=== PATIENT | female | born 1945 | race Caucasian/White ===

== ENCOUNTER 2020-04-23 09:22 | Outpatient (REF) | payer MEDICARE, OTHER, SELFPAY ==
--- NOTE | 2020-04-23 | MM_ITS ---
EXAMINATION: BONE DENSITOMETRY CLINICAL INDICATION: Osteopenia. COMPARISON: Previous BD dated 01/11/2018 and baseline BD dated 01/10/2007. TECHNIQUE: Using a OneShift DXA System (software version: 13.1) manufactured by [employer], dual-energy x-ray absorptiometry was performed of the lumbar spine and left hip. The images are of good technical quality. Summary results are attached. FINDINGS: AP SPINE L1-L4: Current: BMD 1.034 g/cm2, Z-score 0.8, T-score -1.2, osteopenia, 6.7% decrease from previous, 4.9% decrease from baseline (<5% change is not significant). Prior: BMD 1.108 g/cm2. Baseline: BMD 1.087 g/cm2. LEFT FEMUR, NECK: Current: BMD 0.695 g/cm2, Z-score -0.4, T-score -2.5, osteoporosis. Prior: BMD 0.719 g/cm2. Baseline: BMD 0.772 g/cm2. LEFT FEMUR, TOTAL: Current: BMD 0.723 g/cm2, Z-score -0.4, T-score -2.3, osteopenia, 0.7% decrease from previous, 7.3% decrease from baseline (<5% change is not significant). Prior: BMD 0.728 g/cm2. Baseline: BMD 0.780 g/cm2. IDENTIFIED RISK FACTORS: Menopause, history of fracture (adult). HISTORY OF FRACTURE: Wrist. No insufficiency fracture reported. MEDICATIONS: Calcium supplements or multivitamin. IMPRESSION: 1. DIAGNOSIS: Osteoporosis based on the lowest T-score value of -2.5 in the femoral neck applying World Health Organization criteria. 2. 10-YEAR FRACTURE RISK PREDICTION, FRAX: Major osteoporotic fracture (clinical spine, forearm, hip or shoulder) 22.5%. Hip fracture 6.8%. 3. Treatment Recommendations: NOF guidelines recommend consideration for treatment in postmenopausal women and men age 50 and older presenting with the following: -A hip or vertebral (clinical or morphometric) fracture. -T-score less than or equal to -2.5 at the femoral neck or spine after appropriate evaluation to exclude secondary causes. -Low bone mass at the hip or spine and a 10-year fracture probability by FRAX of greater than or equal to 3% for hip fracture or greater than or equal to 20% for major osteoporotic fracture based on the [place] adapted WHO algorithm. 4. Other Recommendations: All treatment decisions require clinical judgment and consideration of individual patient factors, including patient preferences, comorbidities, previous drug use, risk factors not captured in the FRAX model (e.g. frailty, falls, vitamin D deficiency, increased bone turnover, interval significant decline in bone density) and possible under or overestimation of fracture risk by FRAX. Additional medical evaluation for secondary cause of low bone mineral density may be appropriate. FUTURE SCAN RECOMMENDATION: People with diagnosed cases of osteoporosis or at high risk for fracture should have regular bone mineral density tests. For patients eligible for Medicare, routine testing is allowed once every 2 years. The testing frequency can be increased to one year for patients who have rapidly progressing disease, those who are receiving or discontinuing medical therapy to restore bone mass, or have additional risk factors.
--- NOTE | 2020-04-23 | MM_ITS ---
EXAMINATION: MM SCREENING DIGITAL BREAST TOMOSYNTHESIS, BILATERAL CLINICAL INFORMATION: Screening. Asymptomatic. The lifetime risk of breast cancer based on the Tyrer-Cuzick Model is 4%. COMPARISON: Mammography: 01/11/2018, 12/15/2016 TECHNIQUE: Digital breast tomosynthesis is performed in both the craniocaudal and mediolateral oblique views along with computer-aided detection (CAD). Synthesized 2D images are generated from the tomosynthesis. Additional bilateral MLO views are provided. FINDINGS: There are scattered areas of fibroglandular density (ACR BI-RADS breast composition Category b). There are scattered fibroglandular densities. The remainder the breasts are predominantly fatty. There are no significant masses, abnormal calcifications, or other abnormalities. The axilla and skin contours are unremarkable. IMPRESSION: No mammographic evidence of malignancy. ASSESSMENT: BI-RADS 1: Negative RECOMMENDATION: Routine annual mammography screening. This patient's information was entered into a reminder system with a target due date for their next mammogram.
== END 2020-04-23 09:23 | disposition home or self-care (01) ==
LOC: HO.MAMMO 09:22
PROVIDERS: PCP Internal Medicine; Visit Provider Nurse Practitioner Adult Health
DX: Z12.31 Encounter for screening mammogram for malignant neoplasm of breast (principal); Z13.820 Encounter for screening for osteoporosis; M85.80 Other specified disorders of bone density and structure, unspecified site; Z78.0 Asymptomatic menopausal state
CPT/HCPCS: 77063; 77067; 77080

== ENCOUNTER 2021-11-25 08:16 | Outpatient (REF) | payer MEDICARE, OTHER, SELFPAY ==
[2021-11-25 11:35] LABS: Hematocrit 43.4 % (37.0-47.0); Hemoglobin 14.2 g/dl (12.0-16.0); Mean Corpuscular HGB Conc 32.7 g/dl (31.0-35.0); Mean Corpuscular Hemoglobin 29.8 pg (27.0-33.0); Mean Platelet Volume 11.1 fL (9.4-12.3); Platelet Count 195 X10*3/uL (160-400); Red Blood Count 4.77 X10*6/uL (4.20-5.50); Red Cell Distribution Width 12.9 % (11.0-16.0); White Blood Count 5.5 X10*3/uL (4.8-10.8)
[2021-11-25 12:02] LABS: TSH reflex Free T4 2.37 uIU/mL (0.32-4.0)
[2021-11-25 12:07] LABS: Alanine Aminotransferase 14 U/L (0-31); Albumin Level 4.3 g/dL (3.5-5.0); Alkaline Phosphatase 75 U/L (39-117); Anion Gap 13 (12-20); Aspartate Amino Transferase 21 U/L (5-31); Bilirubin Total 1.3 mg/dL (0.0-1.0); Blood Urea Nitrogen 15 mg/dL (9-16); Calcium 10.2 mg/dL (8.4-10.2); Carbon Dioxide 27 mmol/L (22-29); Chloride 105 mmol/L (96-108); Cholesterol 247 mg/dL; Estimated Glomerular Filt Rate > 60; Glucose Fasting 104 mg/dL (60-99); HDL Cholesterol 40 mg/dL; LDL Cholesterol Calculated 166 mg/dl; Potassium 4.5 mmol/L (3.3-5.1); Sodium 140 mmol/L (135-145); Total Protein 7.5 g/dL (6.5-8.0); Triglycerides 205 mg/dL
== END 2021-11-25 08:17 | disposition home or self-care (01) ==
LOC: HO.HMGCLDS 08:16
PROVIDERS: PCP Internal Medicine; Visit Provider Internal Medicine
DX: Z00.00 Encounter for general adult medical examination without abnormal findings (principal); E78.5 Hyperlipidemia, unspecified
CPT/HCPCS: 36415; 80053; 80061; 84443; 85027

== ENCOUNTER 2021-12-25 13:56 | Outpatient (REF) | payer MEDICARE, OTHER, SELFPAY ==
--- NOTE | ~2021-12-25 | US_ITS ---
EXAMINATION: US EXTRACRANIAL CAROTID DUPLEX, BILATERAL CLINICAL INFORMATION: Carotid bruit. Hyperlipidemia. COMPARISON: None TECHNIQUE: Real-time ultrasound and Doppler techniques (integrating B-mode 2-D vascular images, Doppler spectral analysis and color-flow Doppler imaging) were utilized to interrogate the extracranial carotid arteries, the vertebral arteries and proximal subclavian arteries bilaterally. The degree of stenosis is determined by criteria similar to NASCET. FINDINGS: Right Side: 1. There is no atherosclerotic plaque seen in the bifurcation/proximal ICA region. 2. The common carotid artery PSV proximally is 104 cm/s and distally 74 cm/s. 3. The proximal internal carotid artery velocities are 81 cm/s systolic and 27 cm/s diastolic. 4. The proximal external carotid artery PSV is 86 cm/s. 5. The vertebral artery shows antegrade flow. 6. The subclavian artery waveforms are normal. Left Side: 1. There is minimal atherosclerotic plaque seen in the bifurcation/proximal ICA region. 2. The common carotid artery PSV proximally is 115 cm/s and distally 88 cm/s. 3. The proximal internal carotid artery velocities are 75 cm/s systolic and 26 cm/s diastolic. 4. The proximal external carotid artery PSV is 141 cm/s. 5. The vertebral artery shows antegrade flow. 6. The subclavian artery waveforms are normal. US/US carotid duplex BI IMPRESSION: 1. RIGHT: Normal right internal carotid artery without atherosclerotic plaque or hemodynamically significant stenosis. 2. LEFT: Minimal, non-hemodynamically significant stenosis of the proximal left internal carotid artery corresponding to a 0-49% stenosis by velocity criteria.
== END 2021-12-25 13:57 | disposition home or self-care (01) ==
LOC: HO.US 13:56
PROVIDERS: Visit Provider Internal Medicine
DX: R09.89 Other specified symptoms and signs involving the circulatory and respiratory systems (principal)
CPT/HCPCS: 93880

== ENCOUNTER 2022-03-10 08:53 | Outpatient (REF) | payer MEDICARE, OTHER, SELFPAY ==
[2022-03-10 12:16] LABS: Cholesterol 218 mg/dL; HDL Cholesterol 44 mg/dL; LDL Cholesterol Calculated 147 mg/dl; Triglycerides 137 mg/dL
== END 2022-03-10 08:54 | disposition home or self-care (01) ==
LOC: HO.HMGCLDS 08:53
PROVIDERS: PCP Internal Medicine; Visit Provider Internal Medicine
DX: E78.5 Hyperlipidemia, unspecified (principal)
CPT/HCPCS: 36415; 80061

== ENCOUNTER 2022-04-24 10:18 | Outpatient (REF) | payer MEDICARE, OTHER, SELFPAY ==
--- NOTE | ~2022-04-24 | MM_ITS ---
EXAMINATION: BONE DENSITOMETRY CLINICAL INDICATION: Menopause. COMPARISON: Previous BD dated 04/23/2020 and baseline BD dated 01/10/2007. TECHNIQUE: Using a [employer] DXA System (software version: 13.1) manufactured by [employer], dual-energy x-ray absorptiometry was performed of the lumbar spine and left hip. The images are of good technical quality. Summary results are attached. FINDINGS: AP SPINE L1-L4: Current: BMD 1.064 g/cm2, Z-score 1.2, T-score -1.0, normal, 2.9% increase from previous, 2.1% decrease from baseline (<5% change is not significant). Prior: BMD 1.034 g/cm2. Baseline: BMD 1.087 g/cm2. LEFT FEMUR, NECK: Current: BMD 0.668 g/cm2, Z-score -0.4, T-score -2.7, osteoporosis. Prior: BMD 0.695 g/cm2. Baseline: BMD 0.772 g/cm2. LEFT FEMUR, TOTAL: Current: BMD 0.668 g/cm2, Z-score -0.6, T-score -2.7, osteoporosis, 7.6% decrease from previous, 14.4% decrease from baseline (<5% change is not significant). Prior: BMD 0.723 g/cm2. Baseline: BMD 0.780 g/cm2. IDENTIFIED RISK FACTORS: Menopause, height loss, history of fracture (adult), low body weight. HISTORY OF FRACTURE: Wrist. MEDICATIONS: Multivitamin. MM/XR DEXA axial skeleton IMPRESSION: 1. DIAGNOSIS: Osteoporosis based on the lowest T-score value of -2.7 in the femur neck and total femur applying World Health Organization criteria. 2. 10-YEAR FRACTURE RISK PREDICTION, FRAX: According to the guidelines, FRAX calculation should only be performed on patients in the osteopenia bone density category. Therefore, FRAX was not performed on this patient. 3. Treatment Recommendations: NOF guidelines recommend consideration for treatment in postmenopausal women and men age 50 and older presenting with the following: -A hip or vertebral (clinical or morphometric) fracture. -T-score less than or equal to -2.5 at the femoral neck or spine after appropriate evaluation to exclude secondary causes. -Low bone mass at the hip or spine and a 10-year fracture probability by FRAX of greater than or equal to 3% for hip fracture or greater than or equal to 20% for major osteoporotic fracture based on the [place] adapted WHO algorithm. 4. Other Recommendations: All treatment decisions require clinical judgment and consideration of individual patient factors, including patient preferences, comorbidities, previous drug use, risk factors not captured in the FRAX model (e.g. frailty, falls, vitamin D deficiency, increased bone turnover, interval significant decline in bone density) and possible under or overestimation of fracture risk by FRAX. Additional medical evaluation for secondary cause of low bone mineral density may be appropriate. FUTURE SCAN RECOMMENDATION: People with diagnosed cases of osteoporosis or at high risk for fracture should have regular bone mineral density tests. For patients eligible for Medicare, routine testing is allowed once every 2 years. The testing frequency can be increased to one year for patients who have rapidly progressing disease, those who are receiving or discontinuing medical therapy to restore bone mass, or have additional risk factors.
== END 2022-04-24 10:19 | disposition home or self-care (01) ==
LOC: HO.MAMMO 10:18
PROVIDERS: Visit Provider Nurse Practitioner Adult Health
DX: Z13.820 Encounter for screening for osteoporosis (principal); Z78.0 Asymptomatic menopausal state
CPT/HCPCS: 77080

== ENCOUNTER 2022-10-21 08:05 | Outpatient (REF) | payer MEDICARE, OTHER, SELFPAY ==
--- NOTE | ~2022-10-21 | XR_ITS ---
EXAMINATION: XR CHEST CLINICAL INFORMATION: Abnormal weight loss COMPARISON: Previous chest x-ray May 2013 TECHNIQUE: Frontal view of the chest was obtained. FINDINGS: The cardiac and mediastinal contours are stable. The lungs are clear. The lungs are well inflated there is slight elevation of the right hemidiaphragm similar to previous exam. No pleural effusion or pneumothorax. There are degenerative changes of the spine. XR/XR chest 1V IMPRESSION: Well-inflated lungs. No evidence for acute disease in the chest.
[2022-10-21 11:43] LABS: MANUAL DIFF FLAG NO
[2022-10-21 11:51] LABS: Basophils Absolute Auto 0.1 X10*3/uL (0.0-0.2); Basophils Percent Auto 1.3 % (0-2); Eosinophils Absolute Auto 0.1 X10*3/uL (0.0-0.4); Eosinophils Percent Auto 2.2 % (0-4); Hematocrit 41.7 % (37.0-47.0); Hemoglobin 13.5 g/dl (12.0-16.0); Imm Gran Abs Auto 0.01 X10*3/uL (0.00-0.03); Imm Gran Pct Auto 0.2 % (0.0-0.4); Lymphocytes Percent Auto 36.2 % (20-40); Mean Corpuscular HGB Conc 32.4 g/dl (31.0-35.0); Mean Corpuscular Hemoglobin 29.6 pg (27.0-33.0); Mean Corpuscular Volume 91.4 fL (80.0-98.0); Mean Platelet Volume 11.5 fL (9.4-12.3); Monocytes Absolute Auto 0.5 X10*3/uL (0.1-1.2); Neutrophils Absolute Auto 2.9 x10*3/uL (2.0-8.3); Neutrophils Percent Auto 51.1 % (45-73); Platelet Count 192 X10*3/uL (160-400); Red Blood Count 4.56 X10*6/uL (4.20-5.50); Red Cell Distribution Width 12.9 % (11.0-16.0); White Blood Count 5.6 X10*3/uL (4.8-10.8)
[2022-10-21 12:15] LABS: Alanine Aminotransferase 11 U/L (0-31); Albumin Level 4.2 g/dL (3.5-5.0); Alkaline Phosphatase 71 U/L (39-117); Anion Gap 10 (12-20); Aspartate Amino Transferase 20 U/L (5-31); Bilirubin Total 1.1 mg/dL (0.0-1.0); Blood Urea Nitrogen 14 mg/dL (9-16); C Reactive Protein < 0.10 mg/dL (< or = 0.50); Calcium 9.4 mg/dL (8.4-10.2); Carbon Dioxide 29 mmol/L (22-29); Chloride 104 mmol/L (96-108); Cholesterol 217 mg/dL; Estimated Glomerular Filt Rate > 60; Glucose Fasting 89 mg/dL (60-99); HDL Cholesterol 39 mg/dL; Iron 127 mcg/dL (30-160); LDL Cholesterol Calculated 138 mg/dl; Percent Iron Saturation 44 % (15-50); Potassium 4.2 mmol/L (3.3-5.1); Sodium 139 mmol/L (135-145); Total Iron Binding Capacity 288 mcg/dL (228-428); Total Protein 6.8 g/dL (6.5-8.0); Triglycerides 204 mg/dL; Unsaturated Iron Binding 161 ug/dL
[2022-10-21 12:26] LABS: HBS Num1 115.67 mIU/mL (0-7.99); Hepatitis B Core Antibody Nonreactive (Nonreactive); Hepatitis B Surface Antigen Negative (Negative); ~HepC Num1 0.12 S/CO (0.00-0.79); ~Hepatitis B Surface Antibody REACTIVE (Nonreactive); ~Hepatitis C Antibody Nonreactive (Nonreactive)
[2022-10-21 12:52] LABS: Erythrocyte Sedimentation Rate 13 MM/HR (0-20)
[2022-10-21 12:54] LABS: Folate 15.2 ng/mL (> or = 4.0); TSH reflex Free T4 3.32 uIU/mL (0.32-4.0); Vitamin B12 564 pg/mL (200-900); Vitamin D 25-OH Total 56.2 ng/mL (>30)
== END 2022-10-21 08:06 | disposition home or self-care (01) ==
LOC: HO.HMGCX 08:05
PROVIDERS: PCP Internal Medicine; Visit Provider Internal Medicine
DX: R63.4 Abnormal weight loss (principal); E78.5 Hyperlipidemia, unspecified; G62.9 Polyneuropathy, unspecified; Z11.59 Encounter for screening for other viral diseases; Z72.89 Other problems related to lifestyle
CPT/HCPCS: 36415; 71045; 80053; 80061; 82306; 82607; 82746; 83540; 84443; 85025; 85652; 86140; 86704; 86706; 86803; 87340

== ENCOUNTER 2023-01-07 09:54 | Outpatient (REF) | payer MEDICARE, OTHER, SELFPAY ==
--- NOTE | ~2023-01-07 | MM_ITS ---
EXAMINATION: MM SCREENING DIGITAL BREAST TOMOSYNTHESIS, BILATERAL CLINICAL INFORMATION: Screening. Asymptomatic. The lifetime risk of breast cancer based on the Tyrer-Cuzick Model is 3.6%. COMPARISON: Mammography: This study is compared to prior mammograms dating back to 2018. TECHNIQUE: Digital breast tomosynthesis is performed in both the craniocaudal and mediolateral oblique views along with computer-aided detection (CAD). Synthesized 2D images are generated from the tomosynthesis. FINDINGS: There are scattered areas of fibroglandular density (ACR BI-RADS breast composition Category b). There are no significant masses, abnormal calcifications, or other abnormalities. MM/MM tomosynthesis screening BI IMPRESSION: No mammographic evidence of malignancy. ASSESSMENT: BI-RADS BI-RADS 1 - Negative RECOMMENDATION: Routine annual mammography screening. 1 year F/U This patient's information was entered into a reminder system with a target due date for their next mammogram.
== END 2023-01-07 09:55 | disposition home or self-care (01) ==
LOC: HO.MAMMO 09:54
PROVIDERS: PCP Internal Medicine; Visit Provider Nurse Practitioner Adult Health
DX: Z12.31 Encounter for screening mammogram for malignant neoplasm of breast (principal)
CPT/HCPCS: 77063; 77067

== ENCOUNTER → 2023-01-07 10:00 | Outpatient (BNV) | payer MEDICARE, OTHER, SELFPAY | PROVIDERS: PCP Internal Medicine; Visit Provider Radiology Diagnostic Radiology | DX: Z12.31 Encounter for screening mammogram for malignant neoplasm of breast (principal); Z85.3 Personal history of malignant neoplasm of breast | CPT/HCPCS: 77063; 77067 ==

== ENCOUNTER 2023-10-26 14:02 | Outpatient (AMB) | payer MEDICARE, OTHER, SELFPAY ==
[2023-10-26 14:25] VITALS: BP 136/85; PULSE 48; O2SAT 98; BMI 18.9
--- NOTE | 2023-10-26 14:25 | A.OFFPC_ITS ---
Vital Signs 10/26/23 14:25 Height 5 ft 4 in Weight 110 lb BMI 18.9 BP 136/85 Blood Pressure Location Rt brachial Position Sitting Pulse 48 L Pulse Source Pulse Oximeter Pulse Oximetry (%) 98 Oxygen Delivery Method Room Air Intake Visit Reasons: Gastro follow up Allergies simvastatin Adverse Reaction (Unknown, Verified 10/26/23 14:26) myopathy Adhesive Bandages Allergy (Unknown, Uncoded 10/26/23 14:26) skin reaction Adhesive Tape Allergy (Unknown, Uncoded 10/26/23 14:26) skin reaction Chloramphenicol Adverse Reaction (Unknown, Uncoded 10/26/23 14:26) nausea and vomiting Medication List - Last Reconciled 10/26/23 by Rebecca Rust MD gabapentin 200 mg PO BEDTIME latanoprost 0.005% 1 drp ophthalmic (eye) BEDTIME timolol maleate 0.5% drps ophthalmic (eye) Tobacco use date assessed: 10/26/23 Fall risk assessment: No Falls in past year Last assessed Fall Risk: 10/26/23 Dental Screening Dental Screen Date: 10/26/23 Did you have a dental visit in the last 12 months?: Yes Did you have a dental problem in the last 6 months where you did not have access to dental care?: No Was dental information given to patient?: Patient has dentist HPI Gastro follow up HPI Details Pt presents for f/u weight loss and an episode of possible GI in Jul while in [place]. Pt went to ER with a complaint of abdominal pain and black stool. Blood work and CT of the abdomen/pelvis were negative and GI bleed was not confirmed on the physical exam. Patient was afraid to eat but has been slowly increasing her food intake. She denies nausea vomiting recurrent abdominal pain fever or chills. Patient has been taking MiraLax daily and has soft bowel movement. [facility] Medical History (Updated 10/26/23 @ 14:51 by Rebecca Rust MD) Carotid artery bruit Hyperlipemia Glaucoma Neuropathy Hx of screening mammography Basal cell adenoma Annual physical exam Osteopenia Surgical History Hx of colonoscopy Family History Father Heart problem History of multiple strokes Heart attack Mother Heart problem CHF (congestive heart failure) Social History Housing: House Patient Tobacco Use Status: Never used Tobacco e-Cigarette/Vaping Use: Never Used service: No Current occupational status: retired Cognitive needs: No Hearing needs: No Vision needs: Yes Questionnaire Thrive Questionnaire Date Thrive assessed: 10/20/22 AUDIT C Alcohol Use Questionnaire (AUDIT-C) 1. How often do you have a drink containing alcohol?: 2-4 times a month 2. How many drinks containing alcohol do you have on a typical day when you are drinking?: 1 or 2 3. How often do you have six or more drinks on one occasion?: Never Total Score: 2 DENI-7 AMB Questionnaire DEIN-7 Date DENI - 7 assessed: 10/20/22 Feeling nervous, anxious, or on edge: 0 = Not at all Not being able to stop or control worryin = Not at all Worrying too much about different things: 0 = Not at all Trouble relaxin = Not at all Being so restless that it is hard to sit still: 0 = Not at all Becoming easily annoyed or irritable: 0 = Not at all Feeling afraid as if something awful might happen: 0 = Not at all Total DENI-7 score (0-4 normal; 5-9 mild; 10-14 moderate; 15-21 severe): 0 Source: Developed by Drs. Bernard Madison, aMriel Victoria, Aj Rider and colleagues, with an educational glenn from [employer]. Review of Systems Const All systems reviewed & are unremarkable except as noted in HPI and below ENT Reports no additional complaints Card Reports no additional complaints Resp Reports no additional complaints GI Reports no additional complaints Reports no additional complaints Physical exam (Primary Care) Vital Signs: Last Vital Signs Pulse 48 L 10/26/23 14:25 Pulse Ox 98 10/26/23 14:25 Oxygen Delivery Method Room Air 10/26/23 14:25 BMI result Body Mass Index 18.9 Tobacco/Smoking Status: Tobacco use Status Tobacco use date assessed 10/26/23 10/26/23 14:30 Patient Tobacco Use Status Never used Tobacco 10/26/23 14:30 e-Cigarette/Vaping Use Never Used 10/26/23 14:30 Thrive Assessment: Date of Thrive Assessment Date Thrive assessed 10/20/22 10/26/23 14:30 Const General: no acute distress HENMT Head: Yes normal to inspection Eyes General: appearance normal, both eyes and all related structures Resp Effort & Inspection: normal respiratory effort Auscultation: clear to auscultation bilaterally Cardio Rhythm: regular rhythm Heart sounds: S1 normal heart sound present and S2 normal heart sound present GI Inspection: Yes normal to inspection Palpation (GI): Soft to palpation Percussion: Yes normal to percussion Auscultation: normal bowel sounds Assessment and Plan Assessment & Plan (1) History of melena: Code(s): Z87.19 - Personal history of other diseases of the digestive system Plan: Patient will be referred to GI as soon as possible. She was advised to continue MiraLax and monitor for any GI bleed. CBC comprehensive panel will be checked today (2) Weight loss: Code(s): R63.4 - Abnormal weight loss Plan: Increasing caloric intake discussed with the patient. Orders: Orders Complete Blood Count Auto Diff Today R63.4 - Abnormal weight loss, Z87.19 - Personal history of other diseases of the digestive system IRON PROFILE Today R63.4 - Abnormal weight loss, Z87.19 - Personal history of other diseases of the digestive system TSH reflex Free T4 Today R63.4 - Abnormal weight loss, Z87.19 - Personal history of other diseases of the digestive system Comprehensive Met. Panel Today R63.4 - Abnormal weight loss, Z87.19 - Personal history of other diseases of the digestive system Referrals Gastroenterology Referral R63.4 - Abnormal weight loss, Z00.00 - Encounter for general adult medical examination without abnormal findings, Z87.19 - Personal history of other diseases of the digestive system Coding Level of Care Code Est Pt Level 3 (93036) Diagnoses History of melena Z87.19 Weight loss R63.4
== END 2023-10-26 15:26 | disposition home or self-care (01) ==
PROVIDERS: PCP Internal Medicine; Visit Provider Internal Medicine
DX: Z87.19 Personal history of other diseases of the digestive system (principal); R63.4 Abnormal weight loss
CPT/HCPCS: 99213

== ENCOUNTER 2023-10-26 15:03 | Outpatient (REF) | payer MEDICARE, OTHER, SELFPAY ==
[2023-10-26 16:11] LABS: MANUAL DIFF FLAG NO
[2023-10-26 16:19] LABS: Basophils Absolute Auto 0.1 X10*3/uL (0.0-0.2); Basophils Percent Auto 0.8 % (0-2); Eosinophils Absolute Auto 0.1 X10*3/uL (0.0-0.4); Eosinophils Percent Auto 1.5 % (0-4); Hematocrit 40.6 % (37.0-47.0); Hemoglobin 13.6 g/dl (12.0-16.0); Imm Gran Abs Auto 0.02 X10*3/uL (0.00-0.03); Imm Gran Pct Auto 0.3 % (0.0-0.4); Lymphocytes Absolute Auto 2.1 X10*3/uL (1.2-4.9); Lymphocytes Percent Auto 29.2 % (20-40); Mean Corpuscular HGB Conc 33.5 g/dl (31.0-35.0); Mean Corpuscular Hemoglobin 30.6 pg (27.0-33.0); Mean Corpuscular Volume 91.4 fL (80.0-98.0); Mean Platelet Volume 11.5 fL (9.4-12.3); Monocytes Absolute Auto 0.5 X10*3/uL (0.1-1.2); Monocytes Percent Auto 7.2 % (2-11); Neutrophils Absolute Auto 4.4 x10*3/uL (2.0-8.3); Platelet Count 211 X10*3/uL (160-400); Red Blood Count 4.44 X10*6/uL (4.20-5.50); Red Cell Distribution Width 13.1 % (11.0-16.0); White Blood Count 7.2 X10*3/uL (4.8-10.8)
[2023-10-26 17:08] LABS: Alanine Aminotransferase 14 U/L (0-31); Albumin Level 4.2 g/dL (3.5-5.0); Alkaline Phosphatase 76 U/L (39-117); Anion Gap 9 (12-20); Aspartate Amino Transferase 21 U/L (5-31); Bilirubin Total 0.4 mg/dL (0.0-1.0); Blood Urea Nitrogen 17 mg/dL (9-16); Calcium 9.9 mg/dL (8.4-10.2); Carbon Dioxide 31 mmol/L (22-29); Chloride 104 mmol/L (96-108); Estimated Glomerular Filt Rate > 60; Glucose Random 92 mg/dL (60-115); Iron 77 mcg/dL (30-160); Percent Iron Saturation 27 % (15-50); Potassium 3.7 mmol/L (3.3-5.1); Sodium 140 mmol/L (135-145); Total Iron Binding Capacity 281 mcg/dL (228-428); Total Protein 7.4 g/dL (6.5-8.0); Unsaturated Iron Binding 204 ug/dL
[2023-10-26 17:24] LABS: TSH reflex Free T4 2.11 uIU/mL (0.32-4.0)
[2023-10-29 14:12] LABS: FIT Int Ctl YES; FIT1 NEGATIVE (NEGATIVE); FIT2 NEGATIVE (NEGATIVE)
== END 2023-10-26 15:04 | disposition home or self-care (01) ==
LOC: HO.HMGCLDS 15:03
PROVIDERS: PCP Internal Medicine; Visit Provider Internal Medicine
DX: R63.4 Abnormal weight loss (principal); Z87.19 Personal history of other diseases of the digestive system
CPT/HCPCS: 36415; 80053; 82274; 83540; 84443; 85025

== ENCOUNTER 2024-01-10 13:23 | Day surgery (SDC) | payer MEDICARE, OTHER, SELFPAY ==
--- NOTE | 2024-01-07 09:27 | HO.ANESPROP2 ---
Documented by User: Sandra Banks NP 01/07/24 09:28 HPI - Anesthesia Eval Consult details Narrative: 78yo F for Upper Endoscopy and Colonoscopy PMFSH Active Problems Active Problems: All Active Problems History of melena (Acute) Weight loss (Acute) Carotid artery bruit (Acute) Hyperlipemia (Acute) Glaucoma (Acute) Neuropathy (Acute) Hx of colonoscopy (Acute) Hx of screening mammography (Acute) Basal cell adenoma (Acute) Annual physical exam (Acute) Osteopenia (Acute) Past Medical History Medical History Hx of osteoporosis Carotid artery bruit Hyperlipemia Glaucoma Neuropathy Hx of screening mammography Basal cell adenoma Annual physical exam Osteopenia Family History Family History Father Heart problem History of multiple strokes Heart attack Mother Heart problem CHF (congestive heart failure) Surgical History Surgical History Hx of bilateral cataract extraction Hx of tonsillectomy History of nephrectomy, right H/O hemorrhoidectomy Hx of colonoscopy Social History Social History Housing: House Patient Tobacco Use Status: Never used Tobacco e-Cigarette/Vaping Use: Never Used service: No Current occupational status: retired Cognitive needs: No Hearing needs: No Vision needs: Yes Meds Allergies Allergy/AdvReac Type Severity Reaction Status Date / Time simvastatin AdvReac Unknown myopathy Verified 01/10/24 13:44 Adhesive Bandages Allergy Unknown skin Uncoded 10/26/23 14:26 reaction Adhesive Tape Allergy Unknown skin Uncoded 10/26/23 14:26 reaction Chloramphenicol AdvReac Unknown nausea and Uncoded 10/26/23 14:26 vomiting Home Medications ?Medication ?Instructions ?Recorded ?Confirmed ?Last Taken ?Type gabapentin 100 mg capsule 200 mg PO BEDTIME 11/20/21 10/26/23 Unknown History timolol maleate 0.5 % eye drops drp ophthalmic (eye) 11/20/21 10/26/23 Unknown History bimatoprost 0.01 % eye drops 1 drp ophthalmic (eye) BEDTIME 01/10/24 01/10/24 Unknown History (Lena) Exam Pertinent Lab Results Pertinent Lab Results: Laboratory Tests 10/26/23 15:10 WBC 7.2 Hgb 13.6 Hct 40.6 Plt Count 211 Sodium 140 Potassium 3.7 Chloride 104 Carbon Dioxide 31 H BUN 17 H Creatinine 0.77 Narrative Narrative: US carotid duplex BI 2021 IMPRESSION: 1. RIGHT: Normal right internal carotid artery without atherosclerotic plaque or hemodynamically significant stenosis. 2. LEFT: Minimal, non-hemodynamically significant stenosis of the proximal left internal carotid artery corresponding to a 0-49% stenosis by velocity criteria. Assessment and Plan Assessment Anesthesia Assessment: Chart Reviewed Documented by User: Kim Valdez MD 01/10/24 16:49 PMFSH Past Medical History Medical History Hx of osteoporosis Carotid artery bruit Hyperlipemia Glaucoma Neuropathy Hx of screening mammography Basal cell adenoma Annual physical exam Osteopenia Family History Family History Father Heart problem History of multiple strokes Heart attack Mother Heart problem CHF (congestive heart failure) Family history of problems with anesthesia: No Surgical History Surgical History Hx of bilateral cataract extraction Hx of tonsillectomy History of nephrectomy, right H/O hemorrhoidectomy Hx of colonoscopy History of Problems with Anesthesia: No Social History Social History Housing: House Patient Tobacco Use Status: Never used Tobacco e-Cigarette/Vaping Use: Never Used service: No Current occupational status: retired Cognitive needs: No Hearing needs: No Vision needs: Yes Meds Allergies Allergy/AdvReac Type Severity Reaction Status Date / Time simvastatin AdvReac Unknown myopathy Verified 01/10/24 13:44 Adhesive Bandages Allergy Unknown skin Uncoded 10/26/23 14:26 reaction Adhesive Tape Allergy Unknown skin Uncoded 10/26/23 14:26 reaction Chloramphenicol AdvReac Unknown nausea and Uncoded 10/26/23 14:26 vomiting Home Medications ?Medication ?Instructions ?Recorded ?Confirmed ?Last Taken ?Type gabapentin 100 mg capsule 200 mg PO BEDTIME 11/20/21 10/26/23 Unknown History timolol maleate 0.5 % eye drops drp ophthalmic (eye) 11/20/21 10/26/23 Unknown History bimatoprost 0.01 % eye drops 1 drp ophthalmic (eye) BEDTIME 01/10/24 01/10/24 Unknown History (Lena) Exam Height,Weight and Vital Signs: Height 5 ft 4 in Weight 46.448 kg Vital Signs Temp Pulse Resp BP Pulse Ox O2 Del Method 98.0 F 66 15 195/74 H 97 Room Air 01/10/24 13:58 01/10/24 13:58 01/10/24 13:58 01/10/24 13:58 01/10/24 13:58 01/10/24 13:58 Airway Mallampati Class: III (Small mouth) TM Dist: >3cm Neck ROM: Full Loose/Missing/Broken Teeth: No (Caps intact. Denies broken, loose, missing teeth) Heart: RRR Lungs: CTAB Assessment and Plan Assessment Anesthesia Assessment: Anesthesia Plan Discussed and Chart Reviewed Final Anesthetic Review Family History of Problems with Anesthesia: No History of Problems with Anesthesia: No NPO: Yes ASA Class: III Final Preanesthetic Review: No Changes in Pt Med Stat, Meds/Allgs Chart Reviewed, Consent Obtained/Reviewed and Anes Risks/Benef Reviewed Patient Risk: Intermediate Procedure Risk: Low Assessment/Block/Sedation in SS: Assess/Block/Sedation-SS Anesthetic Plan Anesthetic Plan: TIVA Disposition: Standard PACU
--- OUTSIDE RECORDS SUMMARY | 2024-01-10 13:26 | XMS_ITS | Patient Health Record ---
Author Organization [facility] Address [address] [place] [address] Care Team Providers Care Foot Press Operator Name Role Phone Rebecca Rust MD Primary Care Provider Bernard Sorensen [phone] ALLERGIES Allergen (clinical drug ingredient) Drug/Non Drug Allergy documented on EMR Reaction Allergy Type Onset Date Status Seasonale Unknown Drug Allergy Active REASON FOR REFERRAL No Information MEDICATIONS Medication SIG (Take, Route, Fr equency, Duration) Notes Start Date End Date Status Lumigan 0.01 % Ophthalmic for 90 Active Gabapentin 100 MG Oral for 90 Active Timolol Maleate 0.5 % Ophthalmic for 90 Active IMMUNIZATIONS Vaccine Route Administration Date Status Comme nts Influenza Unknown 06/01/2023 Administered SOCIAL HISTORY Tobacco Use: Social History Observation Description Date Details (start date - stop date) Never Smoker NA - NA Sex Assigned At : Social History Observation Description Sex Assigned At Unknown Tobacco Use/Smoking Question Answer Notes Patient is a nonsmoker Alcohol Screen Question Answer Notes Did you have a drink contain ing alcohol in the past year? Yes How often did you have a dri nk containing alcohol in the past year? 2 to 4 times a month (2 points) How many drinks did you have on a typical day when you were drinking in the past year? 1 or 2 drinks (0 point) How often did you have 6 or more drinks on one occasion in the past year? Never (0 point) Points 2 Interpretation Negative PROBLEMS Problem Type ICD Code Onset Dates Problem Status W/U Status Risk SNOMED Code Notes Problem Change in bowel habit (R19.4) Active confirmed Change in bowel habit (94068880) Problem Abnormal weight loss (R63.4) Active confirmed Abnormal weight loss (747476795) VITAL SIGNS Temperature 98.6 degrees Fahrenheit 11/30/2023 Blood pressure diastolic 00 mm Hg 11/30/2023 Height 5 ft 4 in in 11/30/2023 Blood pressure systolic 000 mm Hg 11/30/2023 Weight 107 lbs 11/30/2023 BMI 18.36 kg/m2 11/30/2023 Encounters Encounter Location Date Provider Diagnosis [facility] [place] Outpatient [address] [place] [phone] 01/10/2024 Bernard Paez [facility] [address] [place] [address] 11/30/2023 Bernard Paez Abnormal weight loss R63.4 and Change in bowel habit R19.4 ASSESSMENTS Encounter Date Diagnosis Assessment Notes Treatment Notes Treatment Clinical Notes 11/30/2023 Change in bowel habit (ICD-10 - R19.4) 11/30/2023 Abnormal weight loss (ICD-10 - R63.4) PLAN OF TREATMENT Future Test Test Name Order Date UPPER GI ENDOSCOPY 11/30/2023 COLONOSCOPY 11/30/2023 Next Appt Details Provider Name:Bernard Paez , 01/10/2024 02:40:00 PM, [address] [place] [address] , [place], [place], [id number], Insurance Providers Payer Name Payer Address Payer Phone Subscriber Number Group Number Insured Name Patient Relationship to Insured Coverage Start Date Coverage End Date MEDICARE OF [place] [address] [place] [address] [phone] [id number] SHEILA CARBAJAL Self - patient is the insured FOR LIFE [address] [place] [address] [phone] [id number] SHEILA ANDREWS Self - patient is the insured MEDICAL (GENERAL) HISTORY Medical History History ICD Code High blood pressure white coat syndrome Neuropathy in the feet Denies SD,DM,CVA,Lung disease,renal dise ase Negative screening colonoscopy in 2010 Surgical History Surgery Date(Month/Year) Tonsillectomy 1947 Nephrectomy on the right for renal arter y stenosis 1960 Hemorrhoidectomy 1975
[2024-01-10 13:45] VITALS: BMI 17.6
[2024-01-10 13:58] VITALS: BP 195/74; PULSE 66; RESP 15; TEMP 36.7; O2SAT 97
[2024-01-10] MEDS: Lactated Ringers 1,000 ML 100 ML IVCONT (14:05)
[2024-01-10 16:45] VITALS: BP 152/72; PULSE 57; RESP 20; TEMP 36.1; O2SAT 100
--- NOTE | 2024-01-10 16:46 | P.BOP_ITS ---
Brief Operative Note Date of Service: 01/10/24 Pre-op diagnosis: Change in bowel habits, weight loss Post-op diagnosis: other (R/O celiac disease, hiatal hernia, diverticulosis) Procedure: EGD with biopsies, Colonoscopy to the cecum Surgeon: Bernard Paez MD Anesthesia: MAC Was an Room Service Food Server used for this Procedure?: No Estimated blood loss (mL): 2.0 Pathology: other (A. Descending duodenum B. Gastric antrum) Condition: stable Disposition: PACU
[2024-01-10 17:00] VITALS: BP 181/73; PULSE 51; RESP 16; TEMP 36.1; O2SAT 98
--- NOTE | 2024-01-11 03:20 | OP_ITS ---
DATE OF SERVICE: 01/10/2024 SURGEON: Bernard Paez MD INDICATIONS: The patient presents for evaluation of some change in bowel habits and weight loss. Full consent was obtained from her for that, including risks of bleeding and perforation. PREOPERATIVE DIAGNOSIS: POSTOPERATIVE DIAGNOSIS: PROCEDURE PERFORMED: Esophagogastroduodenoscopy with biopsies and colonoscopy to the cecum. ESTIMATED BLOOD LOSS: COMPLICATIONS: ANESTHESIA: Monitored anesthesia care. ASSISTANTS: SPECIMENS: PREOPERATIVE DIAGNOSES: Change in bowel habits and weight loss. POSTOPERATIVE DIAGNOSES: Change in bowel habits and weight loss, small hiatal hernia, rule out celiac disease, mild gastritis, diverticulosis, and internal hemorrhoids. DESCRIPTION OF PROCEDURE: The patient was placed in left lateral decubitus position. The Olympus video gastroscope was passed in the posterior oropharynx and upper esophagus under direct vision. The scope was passed slowly into the distal esophagus. The gastroesophageal junction appeared normal at 36 cm. There was no sign of any esophagitis nor Li esophagus. The scope entered the stomach. There was a small hiatal hernia. The scope was advanced to pylorus and the duodenum was cannulated to the descending portion. The duodenum including the bulb was carefully inspected and appeared normal. Biopsies were obtained from the 2nd and 3rd portions of the duodenum. The scope was withdrawn back in the stomach. The gastric antrum had some changes of a minimal erythema and edema, but no erosions or ulceration. There was good peristalsis. Biopsies were obtained from the antrum. The scope was retroflexed, visualizing the proximal stomach carefully, which appeared normal, without any sign of mass or ulceration. The scope was straightened and withdrawn back to the esophagus. The esophageal mucosa appeared normal. The scope was withdrawn from the patient. She was turned around for colonoscopy. The digital rectal exam revealed no abnormalities. The Olympus video pediatric colonoscope was entered into the rectum and advanced to the cecum with the assistance of abdominal pressure. Once in the cecum, I did identify normal-appearing cecal pouch with appendiceal orifice and a normal-appearing ileocecal valve. There was transillumination of light deep in the right lower quadrant. The entire cecum and ileocecal valve appeared normal. The scope was slowly withdrawn assessing all mucosal surfaces carefully. Preparation was excellent. I did not visualize any sign of polyps, colitis, nor angiodysplasia. There was a mild amount of sigmoid diverticulosis. In the rectum, scope was retroflexed visualizing small internal hemorrhoids, but no other pathology. The rectal mucosa appeared normal. The scope was straightened and withdrawn from the patient. She tolerated both procedures well and she was returned to the recovery area in stable condition. IMPRESSION: 1. Small hiatal hernia. 2. Rule out celiac disease. 3. Minimal changes of some gastritis. 4. Diverticulosis. 5. Internal hemorrhoids. PLAN: The results of the biopsies will be checked. At this point, she reports that she has been feeling well from a GI standpoint and her weight has been stable. I would not recommend any particular medication for her minimal changes of gastritis at this time as she is otherwise asymptomatic. Given her age and these negative findings, I do not think she will need any further screening colonoscopies. At this point, if things remain stable from a GI standpoint, she will see me on a p.r.n. basis. This has been discussed with her . MD MARBELLA Causey/DEJAN / [id number] MTDD
== END 2024-01-10 17:10 | disposition home or self-care (01) ==
PROVIDERS: PCP Internal Medicine; Visit Provider Internal Medicine
PROC: (CPT 43239; principal; 2024-01-10 14:40)
DX: K29.60 Other gastritis without bleeding (principal); K44.9 Diaphragmatic hernia without obstruction or gangrene; K57.30 Diverticulosis of large intestine without perforation or abscess without bleeding; K64.8 Other hemorrhoids; R63.4 Abnormal weight loss; Z68.1 Body mass index [BMI] 19.9 or less, adult; R19.4 Change in bowel habit; E78.5 Hyperlipidemia, unspecified; D11.9 Benign neoplasm of major salivary gland, unspecified
CPT/HCPCS: 43239; G0121; 88305; 88313; 88342; J2405; J2704

== ENCOUNTER 2024-03-15 09:35 | Outpatient (AMB) | payer MEDICARE, OTHER, SELFPAY ==
--- NOTE | 2024-03-15 09:42 | AM.OFFVISMDC ---
Intake Vital Signs 03/15/24 09:44 Height 5 ft 4 in Weight 110 lb BMI 18.9 BP 130/86 Blood Pressure Location Rt brachial Position Sitting Pulse 58 Pulse Source Pulse Oximeter Pulse Oximetry (%) 99 Oxygen Delivery Method Room Air Intake Visit Reasons: SWV [id number] Allergies simvastatin Adverse Reaction (Unknown, Verified 03/15/24 09:49) myopathy Adhesive Bandages Allergy (Unknown, Uncoded 03/15/24 09:49) skin reaction Adhesive Tape Allergy (Unknown, Uncoded 03/15/24 09:49) skin reaction Chloramphenicol Adverse Reaction (Unknown, Uncoded 03/15/24 09:49) nausea and vomiting Medication List - Last Reviewed 03/15/24 by GEOFFREY Storey gabapentin 200 mg PO BEDTIME latanoprost 0.005% 1 drp ophthalmic (eye) DAILY losartan 25 mg PO DAILY timolol maleate 0.5% drps ophthalmic (eye) HPI SWV [id number] HPI Details Initiated the conversation about Advanced Directives. Advanced Directives help? patients prepare for current and future decisions about their medical treatment? and place of care. Discussed with patient that it is a process where a patients? current condition and prognosis are reviewed, their wishes for information? regarding their illness are elicited, and likely medical dilemmas are presented? and options discussed. The form can be amended as needed, reviewed yearly and? make changes as needed IPPE/AWV ? year old presents? for her ? Annual? Wellness Visit, initial visit.? Medical / Social History Reviewed? Past Medical History ?Yes? . ? [place]? of Care / Care Team list updated ?Yes . ? Surgical/Hospitalization? History ?Yes . ? Current Medications? (including OTC and supplements) ?Yes . ? Family History ?Yes? . ? Tobacco? Control form ?Yes . ? AUDIT-C (Alcohol use) form? ?Yes . ? Illicit drug use in Social? History ?Yes . ? Current diagnosis of? depression? ?No ? Appropriate PHQ2/PHQ9? completed ?Yes . ? Data entered by ?Medical? [employer] and reviewed by provider ? Fall Risk ? Fall? History? Have you had any falls with? injury in the past year? ?No . ? Have you had two or more? falls in the past year? ?No . ? Fall Risk Assessment: ?No? falls in the past year . ? HRA filled out by? the patient, reviewed by Provider and scanned. ? IPPE/AWV ? Balance? Romberg? ?Yes . ? Tandem? walk ?Yes . ? Walk and? Turn ?Yes . ? Rise from? sit to stand ?Yes . ?Vision? Corrective? lens ?Yes ? Vision? screen ? Up-to-date, has an appointment [] for vision? screening and glaucoma screening ?Hearing? Whisper? test ?pass .? Initiated the conversation about Advanced Directives. Advanced Directives help? patients prepare for current and future decisions about their medical treatment? and place of care. Discussed with patient that it is a process where a patients? current condition and prognosis are reviewed, their wishes for information? regarding their illness are elicited, and likely medical dilemmas are presented? and options discussed. The form can be amended as needed, reviewed yearly and? make changes as needed Written? Plan?Completed. See Patient? Documents. [facility] Medical History Hx of osteoporosis Carotid artery bruit Hyperlipemia Glaucoma Neuropathy Hx of screening mammography Basal cell adenoma Annual physical exam Osteopenia Surgical History Hx of bilateral cataract extraction Hx of tonsillectomy History of nephrectomy, right H/O hemorrhoidectomy Hx of colonoscopy Family History Father Heart problem History of multiple strokes Heart attack Mother Heart problem CHF (congestive heart failure) Social History Housing: House Patient Tobacco Use Status: Never used Tobacco e-Cigarette/Vaping Use: Never Used service: No Current occupational status: retired Cognitive needs: No Hearing needs: No Vision needs: Yes Questionnaire Medicare Wellness Checkup [age] What gender do you identify with?: female During the past 4 weeks, how much have you been bothered by emotional problems such as feeling anxious, depressed, irritable, sad or downhearted, and blue?: not at all During the past 4 weeks, has your physical & emotional health limited your social activities with family, friends, neighbors, or groups?: slightly During the past 4 weeks, how much bodily pain have you generally had?: no pain During the past 4 weeks, was someone available to help you if you needed & wanted help?: yes, as much as I wanted During the past 4 weeks, what was the hardest physical activity you could do for at least 2 minutes?: moderate Can you get to places out of walking distance without help? (For eg., can you travel alone on buses, taxis or drive your car?): Yes Can you go shopping for groceries or clothes without someone's help?: Yes Can you prepare your own meals?: Yes Can you do your housework without help?: Yes Because of any health problems, do you need the help of another person with your personal care needs such as eating, bathing, dressing or getting around the house?: No Can you handle your own money without help?: Yes During the past 4 weeks, how would you rate your health in general?: good During the past 4 weeks how have things been going for you?: good & bad parts about equal Are you having difficulties driving your car?: no Do you always fasten your seat belt when you are in a car?: yes, usually During past 4 weeks, have you been bothered by the following: never: Falling or dizzy when standing up, Sexual problems?, Trouble eating well?, Teeth or denture problems? and Problems using the telephone? and sometimes: Tiredness or fatigue? Have you fallen 2 or more times in the past year?: No Are you afraid of falling?: No Are you a smoker?: no During the past 4 weeks, how many drinks of wine, beer, or other alcoholic beverages did you have?: 1 drink or less per week Do you exercise for about 20 minutes 3 or more times a week?: yes, most of the time Have you been given information to help with the following?: no: Hazards in your house that might hurt you? and no: Keeping track of your medications? How often do you have trouble taking medicines the way you have been told to take them?: I always take medicine as prescribed How confident are you that you can control & manage most of your health problems?: somewhat confident What is your race?: White Mini Mental State Exam (MMSE) Orientation What is the (year) (season) (date) (day) (month)?: year, season, date, day and month Where are we (state) (county) (town or city) (hospital) (floor)?: state, county, town or city, hospital/clinic and floor Registration Name of 3 unrelated objects clearly and slowly, then ask patient to repeat all 3 of them. (1st repeat determines score. Make sure they can repeat all three): object 1, object 2 and object 3 Attention & Calculation (CHOOSE ONE) Spell WORLD backwards (DLROW): 5 letters Recall Ask patient to repeat the 3 items from question #3.: object 1, object 2 and object 3 Language Show patient a wristwatch & ask what it is. Repeat for pencil.: watch and pencil Ask the patient to repeat the phrase 'No ifs, ands, or buts' after you.: correct Ask the patient to 'take a piece of paper with their right hand' 'fold paper in half' 'place paper on floor': take paper in right hand, fold paper in half and place paper on floor Print the sentence 'CLOSE YOUR EYES' on a piece. If patient actually closes eyes then score.: followed written direction Give patient a blank piece of paper & ask to write a sentence. Score if it contains a noun & verb.: sentence contains subject and verb Score Score: 29 Activity of Daily Living Bathing - sponge bath, tub bath or shower: receives no assistance (gets in/out by self, if usual bathing means Dressing - getting clothes from closets & drawers, including inner/outer garments & fasteners.: gets clothes & gets completely dressed without help Toileting - going to the 'toilet room' for urine/bowel elimination & cleaning self/arranging clothes: goes to toilet room, cleans self, arranges clothes without help Transfer: moves in & out of bed and chair without help (may use support object) Continence: controls urination/bowel movements completely by self Feeding: feeds self without help Total Score: 0 Information obtained from: patient Using telephone: independent Traveling: independent Shopping: independent Preparing meals: independent Housework: independent Taking medicine: independent Managing money: independent PHQ-9 Over the last 2 weeks, how often have you been bothered by any of the following problems? 1. Little interest or pleasure in doing things: not at all 2. Feeling down, depressed, or hopeless: not at all 3. Trouble falling or staying asleep, or sleeping too much: not at all 4. Feeling tired or having little energy: several days 5. Poor appetite or overeating: not at all 6. Feeling bad about yourself - or that you are a failure or have let yourself or your family down: not at all 7. Trouble concentrating on things, such as reading the newspaper or watching television: not at all 8. Moving or speaking so slowly that other people could have noticed. Or the opposite - being so fidgety or restless that you have been moving around a lot more than usual: not at all 9. Thoughts that you would be better off or of hurting yourself in some way: not at all Total score: 1 Depression Screening Interpretation: Negative Depression Screening Done: Yes 86347 - PHQ-9 Billing: Yes Source: Developed by Drs. Bernard Madison, Mariel Victoria, Aj Rider and colleagues, with an educational glenn from [employer]. Review of Systems Const All systems reviewed & are unremarkable except as noted in HPI and below Eyes Reports no additional complaints Card Reports no additional complaints Resp Reports no additional complaints GI Reports no additional complaints Physical Exam Vital Signs: Last Vital Signs Pulse 58 03/15/24 09:44 BP 130/86 03/15/24 09:44 Pulse Ox 99 03/15/24 09:44 Oxygen Delivery Method Room Air 03/15/24 09:44 BMI result Body Mass Index 18.9 Const General: no acute distress HEENT Head: Yes normal to inspection Neck Neck: Yes supple Resp Effort & Inspection: normal respiratory effort Auscultation: clear to auscultation bilaterally Cardio Rhythm: regular rhythm Heart sounds: S1 normal heart sound present and S2 normal heart sound present GI Inspection: Yes normal to inspection Palpation (GI): Soft to palpation Percussion: Yes normal to percussion Auscultation: normal bowel sounds Extrem General: Yes no clubbing, cyanosis or edema Assessment & Plan Assessment & Plan (1) Hyperlipemia: Comment: Intolerant to multiple statins Code(s): E78.5 - Hyperlipidemia, unspecified Plan: Continue low-cholesterol diet (2) Annual physical exam: Comment: Patient had negative colonoscopy 01/2024 Code(s): Z00.00 - Encounter for general adult medical examination without abnormal findings Plan: Well-balanced diet regular exercise discussed with the patient (3) HTN (hypertension): Code(s): I10 - Essential (primary) hypertension Plan: Start 25 mg of losartan follow-up in 1 month for blood pressure check (4) Osteoporosis: Comment: DEXA 04/2022 T score -2.7,, PATIENT REFUSES TREATMENT, REPEAT DEXA ORDERED BY [employer] ADVISOR Cherelle Code(s): M81.0 - Age-related osteoporosis without current pathological fracture Plan: Continue vitamin-D supplement weight-bearing exercises, patient declined treatment for osteoporosis Medications: New losartan 25 mg PO DAILY 30 tabs 1RF Quality Reporting (2019) Depression/Bipolar (159/160/161/177) PHQ-9: Total score: 1 Coding Level of Care Code Medicare Subsequent (G0439) Diagnoses Hyperlipemia E78.5 Annual physical exam Z00.00 HTN (hypertension) I10 Osteoporosis M81.0 CPT Codes Advance Care Planning - Advance Care Planning discussion: On file, no changes ([id number]) Advance Care Planning - Time spent: 1-15 minutes, on File ([id number]) Advance Care Planning Advance Care Planning discussion: On file, no changes Forms completed: Health Care Proxy Time spent: 1-15 minutes, on File
[2024-03-15 09:44] VITALS: BP 130/86; PULSE 58; O2SAT 99; BMI 18.9
== END 2024-03-15 10:23 | disposition home or self-care (01) ==
PROVIDERS: PCP Internal Medicine; Visit Provider Internal Medicine
DX: Z00.00 Encounter for general adult medical examination without abnormal findings (principal); E78.5 Hyperlipidemia, unspecified; I10 Essential (primary) hypertension; M81.0 Age-related osteoporosis without current pathological fracture
CPT/HCPCS: 1123F; G0439

== ENCOUNTER 2024-04-20 09:54 | Outpatient (AMB) | payer MEDICARE, OTHER, SELFPAY ==
[2024-04-20 10:08] VITALS: BP 122/74; PULSE 73; O2SAT 100; BMI 18.7
--- NOTE | 2024-04-20 10:08 | A.OFFPC_ITS ---
Vital Signs 04/20/24 10:08 Height 5 ft 4 in Weight 109 lb BMI 18.7 BP 122/74 Blood Pressure Location Lt brachial Position Sitting Pulse 73 Pulse Source Pulse Oximeter Pulse Oximetry (%) 100 Oxygen Delivery Method Room Air Intake Visit Reasons: 1 month follow up Intake Note: Pt is here today for 1 month follow up visit. Allergies simvastatin Adverse Reaction (Unknown, Verified 04/20/24 10:09) myopathy Adhesive Bandages Allergy (Unknown, Uncoded 04/20/24 10:09) skin reaction Adhesive Tape Allergy (Unknown, Uncoded 04/20/24 10:09) skin reaction Chloramphenicol Adverse Reaction (Unknown, Uncoded 04/20/24 10:09) nausea and vomiting Medication List - Last Reconciled 04/20/24 by Rebecca Rust MD gabapentin 200 mg PO BEDTIME latanoprost 0.005% 1 drp ophthalmic (eye) DAILY losartan 25 mg PO DAILY timolol maleate 0.5% drps ophthalmic (eye) Tobacco use date assessed: 04/20/24 Fall risk assessment: No Falls in past year Last assessed Fall Risk: 04/20/24 Dental Screening Dental Screen Date: 10/26/23 HPI 1 month follow up HPI Details Patent presents for f/u of HTN. Patient reports feeling more tired since she started taking the medication but denies lightheadedness dizziness chest pain shortness or breath. She continues to take gabapentin for peripheral neuropathy and hot flashes. [facility] Medical History (Updated 04/20/24 @ 10:51 by Rebecca Rust MD) Hx of osteoporosis Carotid artery bruit Hyperlipemia Glaucoma Neuropathy Hx of screening mammography Basal cell adenoma Annual physical exam Osteopenia Surgical History Hx of bilateral cataract extraction Hx of tonsillectomy History of nephrectomy, right H/O hemorrhoidectomy Hx of colonoscopy Family History Father Heart problem History of multiple strokes Heart attack Mother Heart problem CHF (congestive heart failure) Social History Housing: House Patient Tobacco Use Status: Never used Tobacco e-Cigarette/Vaping Use: Never Used service: No Current occupational status: retired Cognitive needs: No Hearing needs: No Vision needs: Yes Questionnaire Thrive Questionnaire Date Thrive assessed: 03/12/24 I am a: Patient What is your living situation today?: I have a steady place to live Within the past 12 months, did the food you bought not last and you didn't have the money to get more?: Never true Within the past 12 months, did you worry whether your food would run out before you got money to buy more?: Never true Do you have trouble paying for medicines?: No Do you have trouble getting transportation to medical appointments?: No Do you have trouble paying your heating and electricity bill?: No Do you have trouble taking care of your child, family member or friend?: No Do you have trouble with day-to-day activities such as bathing, preparing meals, shopping, managing finances, etc.?: No Are you currently unemployed and looking for a job?: No Are you interested in more education?: No Please select the resources that you would like help with: None Currently or been in a relationship where the following occur: No concerns reported THRIVE Score: 0 DENI-7 AMB Questionnaire DENI-7 Date DENI - 7 assessed: 10/20/22 Source: Developed by Drs. Bernard Madison, Mariel Victoria, Aj Rider and colleagues, with an educational glenn from [employer]. Review of Systems Const All systems reviewed & are unremarkable except as noted in HPI and below Card Reports no additional complaints Resp Reports no additional complaints GI Reports no additional complaints Physical exam (Primary Care) Vital Signs: Last Vital Signs Pulse 73 04/20/24 10:08 BP 122/74 04/20/24 10:08 Pulse Ox 100 04/20/24 10:08 Oxygen Delivery Method Room Air 04/20/24 10:08 BMI result Body Mass Index 18.7 Tobacco/Smoking Status: Tobacco use Status Tobacco use date assessed 04/20/24 04/20/24 10:12 Patient Tobacco Use Status Never used Tobacco 04/20/24 10:12 e-Cigarette/Vaping Use Never Used 04/20/24 10:12 Thrive Assessment: Date of Thrive Assessment Date Thrive assessed 03/12/24 04/20/24 10:12 Currently or been in a relationship where the following occur: No concerns reported Const General: no acute distress HENMT Face and sinus: Yes normal facial exam Neck Neck: Yes supple Resp Effort & Inspection: normal respiratory effort Auscultation: clear to auscultation bilaterally Cardio Rate: bradycardic Rhythm: regular rhythm Heart sounds: S1 normal heart sound present and S2 normal heart sound present GI Inspection: Yes normal to inspection Palpation (GI): Soft to palpation Coding Level of Care Code Est Pt Level 4 (28368) Diagnoses Bradycardia R00.1 HTN (hypertension) I10 Melanoma in situ D03.9 Assessment & Plan Assessment & Plan (1) Bradycardia: Code(s): R00.1 - Bradycardia, unspecified Category: Medical Plan: check Holter to rule out symptomatic bradycardia (2) HTN (hypertension): Code(s): I10 - Essential (primary) hypertension Category: Medical Plan: Continue losartan, check basic metabolic panel today, follow-up in 3 months (3) Melanoma in situ: Comment: f/u dermatology 03/[place]24[place], Code(s): D03.9 - Melanoma in situ, unspecified Category: Medical Plan: Follow-up with dermatology Orders: Orders ECG 3 day holter monitor Today I10 - Essential (primary) hypertension, R00.1 - Bradycardia, unspecified Basic Metabolic Panel Today I10 - Essential (primary) hypertension, R00.1 - Bradycardia, unspecified
== END 2024-04-20 10:57 | disposition home or self-care (01) ==
PROVIDERS: PCP Internal Medicine; Visit Provider Internal Medicine
DX: R00.1 Bradycardia, unspecified (principal); I10 Essential (primary) hypertension; D03.9 Melanoma in situ, unspecified

== ENCOUNTER → 2024-04-20 09:54 | Outpatient (BNVA) | payer MEDICARE, OTHER, SELFPAY | PROVIDERS: PCP Internal Medicine; Visit Provider Internal Medicine | DX: R00.1 Bradycardia, unspecified (principal); I10 Essential (primary) hypertension; D03.9 Melanoma in situ, unspecified | CPT/HCPCS: 99212 ==

== ENCOUNTER 2024-04-20 10:57 | Outpatient (REF) | payer MEDICARE, SELFPAY ==
[2024-04-20 13:16] LABS: Anion Gap 11 (12-20); Blood Urea Nitrogen 16 mg/dL (9-16); Carbon Dioxide 30 mmol/L (22-29); Chloride 103 mmol/L (96-108); Estimated Glomerular Filt Rate > 60; Glucose Random 79 mg/dL (60-115); Sodium 140 mmol/L (135-145)
== END 2024-04-20 10:58 | disposition home or self-care (01) ==
LOC: HO.HMGCLDS 10:57
PROVIDERS: PCP Internal Medicine; Visit Provider Internal Medicine
DX: R00.1 Bradycardia, unspecified (principal); I10 Essential (primary) hypertension
CPT/HCPCS: 36415; 80048

== ENCOUNTER 2024-04-27 09:35 | Outpatient (REF) | payer MEDICARE, OTHER, SELFPAY ==
--- NOTE | ~2024-04-27 | MM_ITS ---
EXAMINATION: BONE DENSITOMETRY CLINICAL INDICATION: Age-related osteoporosis without current pathological fracture. COMPARISON: Previous BD dated 04/24/2022 and baseline BD dated 01/10/2007. TECHNIQUE: Using a [employer] DXA System (software version: 13.1) manufactured by [employer], dual-energy x-ray absorptiometry was performed of the lumbar spine and left hip. The images are of good technical quality. Summary results are attached. FINDINGS: LEFT FEMUR, NECK: Current: BMD 0.655 g/cm2, Z-score -0.3, T-score -2.8, osteoporosis. Prior: BMD 0.668 g/cm2. Baseline: BMD 0.772 g/cm2. LEFT FEMUR, TOTAL: Current: BMD 0.639 g/cm2, Z-score -0.6, T-score -2.9, osteoporosis, 4.3% decrease from previous, 18.1% decrease from baseline (<5% change is not significant). Prior: BMD 0.668 g/cm2. Baseline: BMD 0.780 g/cm2. AP SPINE L1-L4: Current: BMD 0.997 g/cm2, Z-score 0.8, T-score -1.5, osteopenia, 6.3% decrease from previous, 8.3% decrease from baseline (<5% change is not significant). Prior: BMD 1.064 g/cm2. Baseline: BMD 1.087 g/cm2. IDENTIFIED RISK FACTORS: Menopause, osteoporosis. HISTORY OF FRACTURE: None listed. MEDICATIONS: Calcium supplements or multivitamin, vitamin D. MM/XR DEXA axial skeleton IMPRESSION: 1. DIAGNOSIS: Osteoporosis based on the lowest T-score value of -2.9 in the total femur applying World Health Organization criteria. 2. 10-YEAR FRACTURE RISK PREDICTION, FRAX: According to the guidelines, FRAX calculation should only be performed on patients in the osteopenia bone density category. Therefore, FRAX was not performed on this patient. 3. Treatment Recommendations: NOF guidelines recommend consideration for treatment in postmenopausal women and men age 50 and older presenting with the following: -A hip or vertebral (clinical or morphometric) fracture. -T-score less than or equal to -2.5 at the femoral neck or spine after appropriate evaluation to exclude secondary causes. -Low bone mass at the hip or spine and a 10-year fracture probability by FRAX of greater than or equal to 3% for hip fracture or greater than or equal to 20% for major osteoporotic fracture based on the [place] adapted WHO algorithm. 4. Other Recommendations: All treatment decisions require clinical judgment and consideration of individual patient factors, including patient preferences, comorbidities, previous drug use, risk factors not captured in the FRAX model (e.g. frailty, falls, vitamin D deficiency, increased bone turnover, interval significant decline in bone density) and possible under or overestimation of fracture risk by FRAX. Additional medical evaluation for secondary cause of low bone mineral density may be appropriate. FUTURE SCAN RECOMMENDATION: People with diagnosed cases of osteoporosis or at high risk for fracture should have regular bone mineral density tests. For patients eligible for Medicare, routine testing is allowed once every 2 years. The testing frequency can be increased to one year for patients who have rapidly progressing disease, those who are receiving or discontinuing medical therapy to restore bone mass, or have additional risk factors. Electronically signed by: Adryan Lloyd MD 05/11/2024 01:21 PM EDT
--- NOTE | ~2024-04-27 | MM_ITS ---
EXAMINATION: MM SCREENING DIGITAL BREAST TOMOSYNTHESIS, BILATERAL CLINICAL INFORMATION: Screening. Asymptomatic. COMPARISON: Mammography: Comparison is made with available priors TECHNIQUE: Digital breast mammography with tomosynthesis is performed in both the craniocaudal and mediolateral oblique views along with computer-aided detection (CAD). FINDINGS: There are scattered areas of fibroglandular density (ACR BI-RADS breast composition Category b). There are no significant masses, abnormal calcifications, or other abnormalities. MM/MM tomosynthesis screening BI IMPRESSION: No mammographic evidence of malignancy. ASSESSMENT: BI-RADS BI-RADS 1 - Negative RECOMMENDATION: Routine annual mammography screening. 1 year F/U This examination should not preclude the clinical evaluation of a suspicious palpable abnormality. This patient's information was entered into a reminder system with a target due date for their next mammogram. Electronically signed by: Isha Irwin DO 05/09/2024 12:27 PM EDT
== END 2024-04-27 09:36 | disposition home or self-care (01) ==
LOC: HO.MAMMO 09:35
PROVIDERS: PCP Internal Medicine; Visit Provider Nurse Practitioner Adult Health
DX: Z12.31 Encounter for screening mammogram for malignant neoplasm of breast (principal); M81.0 Age-related osteoporosis without current pathological fracture
CPT/HCPCS: 77063; 77067; 77080

== ENCOUNTER → 2024-04-27 09:45 | Outpatient (BNV) | payer MEDICARE, OTHER, SELFPAY | PROVIDERS: PCP Internal Medicine; Visit Provider Internal Medicine | DX: Z12.31 Encounter for screening mammogram for malignant neoplasm of breast (principal) | CPT/HCPCS: 77063; 77067 ==

== ENCOUNTER → 2024-04-28 09:13 | Outpatient (REF) | payer MEDICARE, OTHER, SELFPAY ==
--- NOTE | 2024-04-28 09:15 | HM_ITS ---
* Total monitoring time 3 days. * Underlying rhythm is sinus with an average rate of 58/Min. * Rare supraventricular ectopy. Very brief runs noted. * Rare ventricular ectopy. * No significant pauses or high-grade AV blocks. * No diary events. MTDD
== END ==
LOC: HO.CARD 09:13
PROVIDERS: PCP Internal Medicine; Visit Provider Internal Medicine
DX: R00.1 Bradycardia, unspecified (principal); I10 Essential (primary) hypertension
CPT/HCPCS: 93242

== ENCOUNTER → 2024-04-28 09:15 | Outpatient (BNV) | payer MEDICARE, OTHER, SELFPAY | PROVIDERS: PCP Internal Medicine; Visit Provider Internal Medicine | DX: I47.10 Supraventricular tachycardia, unspecified (principal) | CPT/HCPCS: 93244 ==

== ENCOUNTER 2024-06-28 11:47 | Outpatient (AMB) | payer MEDICARE, OTHER, SELFPAY ==
[2024-06-28 11:49] VITALS: BP 138/82; PULSE 90; TEMP 37.1; O2SAT 97; BMI 18.7
--- NOTE | 2024-06-28 11:49 | MHC.OFFWIV ---
Intake Vital Signs 06/28/24 11:49 Height 5 ft 4 in Weight 109 lb BMI 18.7 BP 138/82 Blood Pressure Location Rt brachial Position Sitting Pulse 90 Pulse Source Pulse Oximeter Temp 98.8 F Temp Source Oral Pulse Oximetry (%) 97 Intake Visit Reasons: EP-respiratory symptoms Patient Tobacco Use Status: Never used Tobacco Allergies simvastatin Adverse Reaction (Unknown, Verified 06/28/24 11:50) myopathy Adhesive Bandages Allergy (Unknown, Uncoded 04/20/24 10:09) skin reaction Adhesive Tape Allergy (Unknown, Uncoded 04/20/24 10:09) skin reaction Chloramphenicol Adverse Reaction (Unknown, Uncoded 04/20/24 10:09) nausea and vomiting Do you need a note to return to daycare/school/sports/work: No HPI EP-respiratory symptoms HPI Details This note is constructed using voice recognition software. While every effort has been made to ensure accuracy, mounter hand errors may have been included. The patient is a 79 year old female who presents to the clinic today with cough for the past 3 weeks. She reports that 3 weeks ago she developed clear discharge from her eye and her nose, which led to an upper respiratory infection. She has had most symptoms resolve, however the cough is persistent. She tried Sudafed which did not seem to help, cough syrup, and cough drops, without significant improvement. Two she denies fever, chills, shortness of breath. [facility] Medical History Hx of osteoporosis Carotid artery bruit Hyperlipemia Glaucoma Neuropathy Hx of screening mammography Basal cell adenoma Annual physical exam Osteopenia Surgical History Hx of bilateral cataract extraction Hx of tonsillectomy History of nephrectomy, right H/O hemorrhoidectomy Hx of colonoscopy Family History Father Heart problem History of multiple strokes Heart attack Mother Heart problem CHF (congestive heart failure) Social History Housing: House Patient Tobacco Use Status: Never used Tobacco e-Cigarette/Vaping Use: Never Used service: No Current occupational status: retired Cognitive needs: No Hearing needs: No Vision needs: Yes Review of Systems Const All systems reviewed & are unremarkable except as noted in HPI and below Physical Exam Vital Signs: Last Vital Signs Temp 98.8 F 06/28/24 11:49 Pulse 90 06/28/24 11:49 BP 138/82 06/28/24 11:49 Pulse Ox 97 06/28/24 11:49 BMI result Body Mass Index 18.7 Const General: cooperative, healthy appearing, comfortable and no acute distress Orientation/consciousness: patient oriented x3 Limitations: no limitations HEENT Head: Yes normal to inspection Ears: hearing grossly normal bilaterally, external ears normal and TM abnormal retracted General nose exam: Normal external nose present, No nasal discharge present and Abnormal mucous membranes and turbinates present boggy and pale Face and sinus: Yes normal facial exam and Yes sinuses nontender Mouth: Normal oral and palatal mucosa present and moist mucous membranes Throat: Yes tonsils normal, Yes uvula midline, Yes posterior oropharynx abnormal (Erythema), Yes postnasal drainage and Yes cobblestoning Eyes General: appearance normal, both eyes and all related structures Neck Neck: Yes normal visual inspection Resp Effort & Inspection: normal respiratory effort, able to speak in complete sentences, Actively coughing, no respiratory distress, not tachypneic, no tripod positioning and no use of accessory muscles Auscultation: clear to auscultation bilaterally Cardio Rate: regular rate Rhythm: regular rhythm Heart sounds: normal S1 and S2 Skin General skin exam: no rashes or lesions noted Neuro General: patient oriented x3 Extrem General: Yes normal to inspection and Yes no clubbing, cyanosis or edema Assessment & Plan Assessment & Plan (1) Allergic rhinitis: Code(s): J30.9 - Allergic rhinitis, unspecified Qualifiers: Allergic rhinitis trigger: unspecified Allergic rhinitis seasonality: unspecified Qualified Code(s): J30.9 - Allergic rhinitis, unspecified Plan: Patient likely had viral URI, however lingering symptoms likely related to allergies. Supportive measures encouraged and reviewed. Advised patient to try a Flonase nasal spray and second-generation antihistamine such as Zyrtec, Claritin, Kaye or similar. Advised consideration of sinus rinse if needed. Advised patient to follow up with primary care provider with worsening or failure to resolve. Plan See above for full details and plan. Coding Level of Care Code Est Pt Level 3 (26309) Diagnoses Allergic rhinitis, unspecified seasonality, unspecified trigger J30.9 Allergic rhinitis trigger: unspecified Allergic rhinitis seasonality: unspecified
--- OUTSIDE RECORDS SUMMARY | 2024-06-28 11:51 | XMS_ITS ---
Author Organization [facility] Address [address] [place] [address] Care Team Providers Care Sawmill Supervisor Name Role Phone Rebecca Rust MD Primary Care Provider Bernard Sorensen [phone] REASON FOR VISIT abn wt loss, change in bowel habit PROBLEMS Problem Type ICD Code Onset Dates Problem Status W/U Status Risk SNOMED Code Notes Problem Diverticulosis of large intestine without perforation or abscess without bleeding (K57.30) Active confirmed Diverticul ar disease of colon (654772358) Problem Unspecified chronic gastritis without bleeding (K29.50) Active confirmed Atrophic gastritis (17496460) Encounters Encounter Location Date Provider Diagnosis [facility] [address] [place] [phone] 01/10/2024 Bernard Paez Change in bowel little bits R19.4 ; Weight loss R63.4 ; Diverticulosis of large intestine without perforation or abscess without bleeding K57.30 ; Other hemorrhoids K64.8 ; Hiatal hernia K44.9 and Unspecified chronic gastritis without bleeding K29.50 ASSESSMENTS Encounter Date Diagnosis Assessment Notes Treatment Notes Treatment Clinical Notes 01/10/2024 Change in bowel habits (ICD-10 - R19.4) 01/10/2024 Weight loss (ICD-10 - R63.4) 01/10/2024 Diverticulosis of large intestine without perforation or abscess without bleeding (ICD-10 - K57.30) 01/10/2024 Other hemorrhoids (ICD-10 - K64.8) 01/10/2024 Hiatal hernia (ICD-1 0 - K44.9) 01/10/2024 Unspecified chronic gastritis without bleeding (ICD-10 - K29.50) PLAN OF TREATMENT No Information
--- OUTSIDE RECORDS SUMMARY | 2024-06-28 11:51 | XMS_ITS ---
Author Organization [facility] Address [address] [place] [address] Care Team Providers Care Stage Technician Name Role Phone Rebecca Rust MD Primary Care Provider Bernard Sorensen [phone] ALLERGIES Allergen (clinical drug ingredient) Drug/Non Drug Allergy documented on EMR Reaction Allergy Type Onset Date Status Seasonale Unknown Drug Allergy Active REASON FOR VISIT Patient presents today for a F/U HOSPITAL VISIT IN [place] MEDICATIONS Medication SIG (Take, Route, Fr equency, Duration) Notes Start Date End Date Status Lumigan 0.01 % Ophthalmic for 90 Active Gabapentin 100 MG Oral for 90 Active Timolol Maleate 0.5 % Ophthalmic for 90 Active SOCIAL HISTORY Tobacco Use: Social History Observation [...] W/U Status Risk SNOMED Code Notes Problem Abnormal weight loss (R63.4) Active confirmed Abnormal weight loss (455829421) Problem Change in bowel habit (R19.4) Active confirmed Change in bowel habit (00863842) VITAL SIGNS BMI 18.36 kg/m2 11/30/2023 Blood pressure systolic 000 mm Hg 11/30/19 24 Blood pressure diastolic 00 mm Hg 024 Height 5 ft 4 in in 11/30/2023 Temperature 98.6 degrees Fahrenheit 11/30/19 24 Weight 107 lbs 11/30/2023 Encounters Encounter Location Date Provider Diagnosis [facility] [address] [place] [address] 11/30/2023 Bernard Paez Abnormal weight loss R63.4 and Change in bowel habit R19.4 ASSESSMENTS Encounter Date Diagnosis Assessment Notes Treatment Notes Treatment Clinical Notes 11/30/2023 Abnormal weight loss (ICD-10 - R63.4) 11/30/2023 Change in bowel habit (ICD-10 - R19.4) PLAN OF TREATMENT Future Test Test Name Order Date UPPER GI ENDOSCOPY 11/30/2023 COLONOSCOPY 11/30/2023 Next Appt Details Follow Up: prn, Reason: Progress Notes * Examination Category Sub-Category Detail Notes General Examination GENERAL APPEARANCE: pleasant , well nourished, well developed, in no acute distress HEAD: EYES: sclera non-icteric EARS: NOSE: THROAT: NECK/THYROID: no cervical lymphade nopathy, neck supple HEART: S1, S2 normal CHEST: LUNGS: clear to auscultatio n bilaterally ABDOMEN: normal bowel sounds, no guarding or rigidity, no guarding or rigidity, no masses palpable, soft, nontender, nondistended NEUROLOGIC: alert and oriented SKIN: nonjaundiced, no spi dk angiomata EXTREMITIES: no edema PERIPHERAL PULSES: BACK: BREASTS: MUSCULOSKELETAL: MALE GENITOURINARY: LYMPH NODES: RECTAL EXAM: FEMALE GENITOURINARY: ORAL CAVITY: mucosa moist
--- OUTSIDE RECORDS SUMMARY | 2024-06-28 11:51 | XMS_ITS ---
Author Organization [facility] Address [address] [place] [address] Care Team Providers Care Animated Cartoons Painter Name Role Phone Rebecca Rust MD Primary Care Provider Bernard Sorensen [phone] REASON FOR VISIT Consult Encounters Encounter Location Date Provider Diagnosis [facility] [address] [place] [address] 01/26/2024 Bernard Paez PLAN OF TREATMENT No Information
--- OUTSIDE RECORDS SUMMARY | 2024-06-28 11:52 | XMS_ITS | Patient Health Record ---
Author Organization [facility] Address [address] [place] [address] Care Team Providers Care Automobile Brakes Bonder Name Role Phone Rebecca Rust MD Primary Care Provider Bernard Sorensen [phone] ALLERGIES Allergen (clinical drug ingredient) Drug/Non Drug Allergy documented on EMR Reaction Allergy Type Onset Date Status Seasonale Unknown Drug Allergy Active RESULTS Component Value Reference Range Notes Pathology Reviewed date:01/30/2024 11:49:22 PM Interpretation: Performing Lab:[facility], [address] [place] [phone] Notes/Report: REASON FOR REFERRAL No Information MEDICATIONS Medication [...] bowel habit (R19.4) Active confirmed Change in lg l habit (56832693) Problem Unspecified chronic gastritis without bleeding (K29.50) Active confirmed Atrophic gastritis (34978854) Problem Diverticulosis of large intestine without perforation or abscess without bleeding (K57.30) Active confirmed Diverticul ar disease of colon (535514781) Problem Abnormal weight loss (R63.4) Active confirmed Abnormal weight loss (583995845) VITAL SIGNS Temperature 98.6 degrees Fahrenheit 11/30/2023 Blood pressure diastolic 00 mm Hg 11/30/2023 Height 5 ft 4 in in 11/30/2023 Blood pressure systolic 000 mm Hg 11/30/2023 Weight 107 lbs 11/30/2023 BMI 18.36 kg/m2 11/30/2023 Encounters Encounter Location Date Provider Diagnosis [facility] [place] [address] [place] [phone] 01/10/2024 Bernard Paez Change in bowel habi ts R19.4 ; Weight loss R63.4 ; Diverticulosis of large intestine without perforation or abscess without bleeding K57.30 ; Other hemorrhoids K64.8 ; Hiatal hernia K44.9 and Unspecified chronic gastritis without bleeding K29.50 [facility] [address] [place] [address] 11/30/2023 Bernard Paez Abnormal weight loss R63.4 and Change in bowel habit R19.4 [facility] [address] [place] [address] 01/26/2024 Bernard Paez ASSESSMENTS Encounter Date Diagnosis Assessment Notes Treatment Notes Treatment Clinical Notes 01/10/2024 Change in bowel habits (ICD-10 - R19.4) 01/10/2024 Weight loss (ICD-10 - R63.4) 11/30/2023 Change in bowel habi t (ICD-10 - R19.4) 11/30/2023 Abnormal weight loss (ICD-10 - R63.4) 01/10/2024 Diverticulosis of large intestine without perforation or abscess without bleeding (ICD-10 - K57.30) 01/10/2024 Other hemorrhoids (ICD-10 - K64.8) 01/10/2024 Hiatal hernia (ICD-1 0 - K44.9) 01/10/2024 Unspecified chronic gastritis without bleeding (ICD-10 - K29.50) PLAN OF TREATMENT Future Test Test Name Order Date UPPER GI ENDOSCOPY 11/30/2023 COLONOSCOPY 11/30/2023 Insurance Providers Payer Name Payer Address Payer Phone Subscriber Number Group Number Insured Name Patient Relationship to Insured Coverage Start Date Coverage End Date MEDICARE OF [place] [address] [place] [address] [phone] [id number] SHEILA ANDREWS Self - patient is the insured [employer] [address] [place] [address] [phone] [id number] SHEILA ANDREWS Self - patient is the insured MEDICAL (GENERAL) HISTORY Medical History History ICD Code High blood pressure white coat syndrome Neuropathy in the feet Denies AL,DM,CVA,Lung disease,renal dise ase Negative screening colonoscopy in 2010 Surgical History Surgery Date(Month/Year) Tonsillectomy 1947 Nephrectomy on the right for renal arter y stenosis 1960 Hemorrhoidectomy 1975
== END 2024-06-28 12:06 | disposition home or self-care (01) ==
PROVIDERS: PCP Internal Medicine; Visit Provider Registered Nurse
DX: J30.9 Allergic rhinitis, unspecified (principal)

== ENCOUNTER → 2024-06-28 11:47 | Outpatient (BNVA) | payer MEDICARE, OTHER, SELFPAY | PROVIDERS: PCP Internal Medicine; Visit Provider Registered Nurse | DX: J30.9 Allergic rhinitis, unspecified (principal) | CPT/HCPCS: 99212 ==

== ENCOUNTER 2024-07-18 10:37 | Outpatient (AMB) | payer MEDICARE, OTHER, SELFPAY ==
[2024-07-18 10:47] VITALS: BP 130/84; PULSE 61; O2SAT 95; BMI 17.7
--- NOTE | 2024-07-18 10:47 | MHC.PC.OV ---
Vital Signs 07/18/24 10:47 Height 5 ft 4 in Weight 103 lb BMI 17.7 BP 130/84 Blood Pressure Location Lt brachial Position Sitting Pulse 61 Pulse Source Pulse Oximeter Pulse Oximetry (%) 95 Oxygen Delivery Method Room Air Intake Visit Reasons: 3 months follow up Intake Note: Pt is here today for 3 months follow up visit. Allergies simvastatin Adverse Reaction (Unknown, Verified 07/18/24 11:07) myopathy Adhesive Bandages Allergy (Unknown, Uncoded 07/18/24 11:07) skin reaction Adhesive Tape Allergy (Unknown, Uncoded 07/18/24 11:07) skin reaction Chloramphenicol Adverse Reaction (Unknown, Uncoded 07/18/24 11:07) nausea and vomiting Medication List - Last Reconciled 07/18/24 by Rebecca Rust MD gabapentin 200 mg PO BEDTIME latanoprostene bunod 0.024% (Vyzulta) 1 drp ophthalmic (eye) DAILY losartan 25 mg PO DAILY timolol maleate 0.5% drps ophthalmic (eye) Tobacco use date assessed: 07/18/24 Fall risk assessment: No Falls in past year Last assessed Fall Risk: 07/18/24 Dental Screening Dental Screen Date: 07/18/24 Did you have a dental visit in the last 12 months?: Yes Did you have a dental problem in the last 6 months where you did not have access to dental care?: No Was dental information given to patient?: Patient has dentist HPI 3 months follow up HPI Details Pt presents for f/u HTN and neuropathy. Pt had URI last month, getting better. PFS Medical History (Updated 07/18/24 @ 11:47 by Rebecca Rust MD) Hx of osteoporosis Carotid artery bruit Hyperlipemia Glaucoma Neuropathy Hx of screening mammography Basal cell adenoma Annual physical exam Osteopenia Surgical History Hx of bilateral cataract extraction Hx of tonsillectomy History of nephrectomy, right H/O hemorrhoidectomy Hx of colonoscopy Family History Father Heart problem History of multiple strokes Heart attack Mother Heart problem CHF (congestive heart failure) Social History Housing: House Patient Tobacco Use Status: Never used Tobacco e-Cigarette/Vaping Use: Never Used service: No Current occupational status: retired Cognitive needs: No Hearing needs: No Vision needs: Yes Questionnaire PHQ-9 Over the last 2 weeks, how often have you been bothered by any of the following problems? 1. Little interest or pleasure in doing things: several days 2. Feeling down, depressed, or hopeless: several days 3. Trouble falling or staying asleep, or sleeping too much: not at all 4. Feeling tired or having little energy: not at all 5. Poor appetite or overeating: several days 6. Feeling bad about yourself - or that you are a failure or have let yourself or your family down: not at all 7. Trouble concentrating on things, such as reading the newspaper or watching television: not at all 8. Moving or speaking so slowly that other people could have noticed. Or the opposite - being so fidgety or restless that you have been moving around a lot more than usual: not at all 9. Thoughts that you would be better off or of hurting yourself in some way: not at all Total score: 3 Depression Screening Interpretation: Negative Depression Screening Done: Yes [id number] - PHQ-9 Billing: Yes Source: Developed by Drs. Bernard Madison, Mariel Victoria, Aj Rider and colleagues, with an educational glenn from [employer]. Thrive Questionnaire Date Thrive assessed: 07/18/24 I am a: Patient What is your living situation today?: I have a steady place to live Within the past 12 months, did the food you bought not last and you didn't have the money to get more?: Never true Within the past 12 months, did you worry whether your food would run out before you got money to buy more?: Never true Do you have trouble paying for medicines?: No Do you have trouble getting transportation to medical appointments?: No Do you have trouble paying your heating and electricity bill?: No Do you have trouble taking care of your child, family member or friend?: No Do you have trouble with day-to-day activities such as bathing, preparing meals, shopping, managing finances, etc.?: No Are you currently unemployed and looking for a job?: No Are you interested in more education?: No Please select the resources that you would like help with: None Currently or been in a relationship where the following occur: I choose not to answer THRIVE Score: 0 AUDIT C Alcohol Use Questionnaire (AUDIT-C) 1. How often do you have a drink containing alcohol?: Monthly or less 2. How many drinks containing alcohol do you have on a typical day when you are drinking?: 1 or 2 3. How often do you have six or more drinks on one occasion?: Never Total Score: 1 DENI-7 AMB Questionnaire DENI-7 Date DENI - 7 assessed: 07/18/24 Feeling nervous, anxious, or on edge: 0 = Not at all Not being able to stop or control worryin = Not at all Worrying too much about different things: 0 = Not at all Trouble relaxin = Not at all Being so restless that it is hard to sit still: 0 = Not at all Becoming easily annoyed or irritable: 0 = Not at all Feeling afraid as if something awful might happen: 0 = Not at all Total DENI-7 score (0-4 normal; 5-9 mild; 10-14 moderate; 15-21 severe): 0 Source: Developed by Drs. Bernard Madison, Mariel Victoria, Aj Rider and colleagues, with an educational glenn from [employer]. DENI-7 Assessment Billing DENI-7 Assessment Tool: DENI-7 Assessment 40365 Review of Systems Const All systems reviewed & are unremarkable except as noted in HPI and below Eyes Reports no additional complaints ENT Reports no additional complaints Card Reports no additional complaints Resp Reports no additional complaints GI Reports no additional complaints Reports no additional complaints Physical exam (Primary Care) Vital Signs: Last Vital Signs Pulse 61 07/18/24 10:47 BP 130/84 07/18/24 10:47 Pulse Ox 95 07/18/24 10:47 Oxygen Delivery Method Room Air 07/18/24 10:47 BMI result Body Mass Index 17.7 Tobacco/Smoking Status: Tobacco use Status Tobacco use date assessed 07/18/24 07/18/24 11:07 Patient Tobacco Use Status Never used Tobacco 07/18/24 11:07 e-Cigarette/Vaping Use Never Used 07/18/24 10:49 PHQ-9: PHQ-9 Score PHQ-9: Total score 3 07/18/24 11:07 Depression Screening Interpretation: Negative Thrive Assessment: Date of Thrive Assessment Date Thrive assessed 07/18/24 07/18/24 10:49 Currently or been in a relationship where the following occur: I choose not to answer Const General: no acute distress HENMT Mouth: Normal oral and palatal mucosa present Eyes General: appearance normal, both eyes and all related structures Neck Neck: Yes no lymphadenopathy and Yes supple Resp Effort & Inspection: normal respiratory effort Auscultation: clear to auscultation bilaterally Cardio Rhythm: regular rhythm Heart sounds: S1 normal heart sound present and S2 normal heart sound present GI Inspection: Yes normal to inspection Palpation (GI): Soft to palpation Percussion: Yes normal to percussion Auscultation: normal bowel sounds Coding Level of Care Code Est Pt Level 4 (43463) Diagnoses Melanoma in situ D03.9 HTN (hypertension) I10 Osteopenia M85.80 Weight loss R63.4 Additional Codes DENI-7 Assessment Billing - DENI-7 Assessment Tool: DENI-7 Assessment 49490 ([id number]) PHQ-9 - 78135 - PHQ-9 Billing: Yes ([id number]) Assessment & Plan Assessment & Plan (1) Melanoma in situ: Comment: f/u dermatology 03/[place], Code(s): D03.9 - Melanoma in situ, unspecified Category: Medical Plan: f/u with dermatology (2) HTN (hypertension): Code(s): I10 - Essential (primary) hypertension Category: Medical Plan: cont Losartan (3) Osteopenia: Comment: DEXA will have in 12/31, f/u with gill tender Code(s): M85.80 - Other specified disorders of bone density and structure, unspecified site Category: Medical Plan: cont vit D (4) Weight loss: Code(s): R63.4 - Abnormal weight loss Category: Medical Plan: Well-balanced diet increasing caloric intake taking nutritional supplement daily discussed with the patient. She will continue to monitor her weight
--- OUTSIDE RECORDS SUMMARY | 2024-07-18 11:42 | XMS_ITS ---
Author Organization [facility] Address [address] [place] [address] Care Team Providers Care Electrical Instrumentation Technician Name Role Phone Rebecca Rust MD Primary Care Provider Bernard Sorensen [phone] REASON FOR VISIT abn wt loss, change in bowel habit PROBLEMS Problem Type ICD Code Onset Dates Problem Status W/U Status Risk SNOMED Code Notes Problem Diverticulosis of large intestine without perforation or abscess without bleeding (K57.30) Active confirmed Diverticul ar disease of colon (479098425) Problem Unspecified chronic gastritis without bleeding (K29.50) Active confirmed Atrophic gastritis (07511926) Encounters Encounter Location Date Provider Diagnosis [facility] [place] [facility] [address] [place] [phone] 01/10/2024 Bernard Paez Change in bowel little [...]
--- OUTSIDE RECORDS SUMMARY | 2024-07-18 11:42 | XMS_ITS ---
Author Organization [facility] Address [address] [place] [address] Care Team Providers Care It Network Architect Name Role Phone Rebecca Rust MD Primary Care Provider Bernard Sorensen [phone] REASON FOR VISIT Consult Encounters Encounter Location Date Provider Diagnosis [facility] [address] [place] [address] 01/26/2024 Bernard Paez PLAN OF TREATMENT No Information
--- OUTSIDE RECORDS SUMMARY | 2024-07-18 11:43 | XMS_ITS ---
Author Organization [facility] Address [address] [place] [address] Care Team Providers Care Manager Center Name Role Phone Rebecca Rust MD Primary Care Provider Bernard Sorensen [phone] ALLERGIES Allergen (clinical drug ingredient) Drug/Non Drug Allergy documented on EMR Reaction Allergy Type Onset Date Status Seasonale Unknown Drug Allergy Active REASON FOR VISIT Patient presents today for a F/U HOSPITAL VISIT IN [place] MEDICATIONS Medication SIG (Take, Route, Fr equency, [...] loss (R63.4) Active confirmed Abnormal weight loss (485051320) Problem Change in bowel habit (R19.4) Active confirmed Change in bowel habit (18988016) VITAL SIGNS BMI 18.36 kg/m2 11/30/2023 Blood pressure systolic 000 mm Hg 11/30/19 24 Blood pressure diastolic 00 mm Hg 024 Height 5 ft 4 in in 11/30/2023 Temperature 98.6 degrees Fahrenheit 11/30/19 24 Weight 107 lbs 11/30/2023 Encounters Encounter Location Date Provider Diagnosis [facility] [address] [place] [address] 11/30/2023 Bernard Paez Abnormal weight loss R63.4 [...]
--- OUTSIDE RECORDS SUMMARY | 2024-07-18 11:43 | XMS_ITS | Patient Health Record ---
Author Organization [facility] Address [address] [place] [address] Care Team Providers Care Prison Librarian Name Role Phone Rebecca Rust MD Primary Care Provider Bernard Sorensen [phone] ALLERGIES Allergen (clinical drug ingredient) Drug/Non Drug Allergy documented on EMR Reaction Allergy Type Onset Date Status Seasonale Unknown Drug Allergy Active RESULTS Component Value Reference Range Notes Pathology Reviewed date:01/30/2024 11:49:22 PM Interpretation: Performing Lab:[facility], [address] [place] [id number] Notes/Report: REASON FOR REFERRAL No Information MEDICATIONS [...] Active confirmed Change in lg l habit (87025662) Problem Unspecified chronic gastritis without bleeding (K29.50) Active confirmed Atrophic gastritis (21224083) Problem Diverticulosis of large intestine without perforation or abscess without bleeding (K57.30) Active confirmed Diverticul ar disease of colon (564596425) Problem Abnormal weight loss (R63.4) Active confirmed Abnormal weight loss (639101606) VITAL SIGNS Temperature 98.6 degrees Fahrenheit 11/30/2023 Blood pressure diastolic 00 mm Hg 11/30/2023 Height 5 ft 4 in in 11/30/2023 Blood pressure systolic 000 mm Hg 11/30/2023 Weight 107 lbs 11/30/2023 BMI 18.36 kg/m2 11/30/2023 Encounters Encounter Location Date Provider Diagnosis [facility] [address] [place] [id number] 01/10/2024 Bernard Paez Change in bowel habi ts R19.4 ; Weight loss R63.4 ; Diverticulosis of large intestine without perforation or abscess without bleeding K57.30 ; Other hemorrhoids K64.8 ; Hiatal hernia K44.9 and Unspecified chronic gastritis without bleeding K29.50 [facility] [address] [place] [id number] 11/30/2023 Bernard Paez Abnormal weight loss R63.4 and Change in bowel habit R19.4 [facility] [address] [place] [phone] 01/26/2024 Bernard Paez ASSESSMENTS Encounter Date Diagnosis [...] Date MEDICARE OF [place] [address] [place] [address] [phone] [id number] SHEILA ANDREWS Self - patient is the insured [employer] [address] [place] [address] [id number] SHEILA ANDREWS Self - patient is the insured MEDICAL (GENERAL) HISTORY Medical History History ICD Code High blood pressure white coat syndrome Neuropathy in the feet Denies SC,DM,CVA,Lung disease,renal dise ase Negative screening colonoscopy in 2010 Surgical History Surgery Date(Month/Year) Tonsillectomy 1947 Nephrectomy on the right for renal arter y stenosis 1960 Hemorrhoidectomy 1975
== END 2024-07-18 12:19 | disposition home or self-care (01) ==
PROVIDERS: PCP Internal Medicine; Visit Provider Internal Medicine
DX: D03.9 Melanoma in situ, unspecified (principal); I10 Essential (primary) hypertension; M85.80 Other specified disorders of bone density and structure, unspecified site; R63.4 Abnormal weight loss

== ENCOUNTER → 2024-07-18 10:37 | Outpatient (BNVA) | payer MEDICARE, OTHER, SELFPAY | PROVIDERS: PCP Internal Medicine; Visit Provider Internal Medicine | DX: D03.9 Melanoma in situ, unspecified (principal); I10 Essential (primary) hypertension; M85.80 Other specified disorders of bone density and structure, unspecified site; R63.4 Abnormal weight loss | CPT/HCPCS: 96127; 99212 ==

== ENCOUNTER 2025-01-25 09:39 | Outpatient (REF) | payer MEDICARE, OTHER, SELFPAY ==
--- OUTSIDE RECORDS SUMMARY | 2025-01-25 09:58 | XMS_ITS | Patient Health Record ---
Author Organization [facility] Address [address] [place] [address] Care Team Providers Care Foster Winder Name Role Phone Rebecca Rust MD Primary Care Provider Bernard Sorensen [phone] Allergies Allergen (clinical drug ingredient) Drug/Non Drug Allergy documented on EMR Reaction Allergy Type Onset Date Status Seasonale Unknown Drug Allergy Active Reason For Referral No Information Medications Medication SIG (Take, Route, Fr equency, Duration) Notes Start Date End Date Status Lumigan 0.01 % Ophthalmic for 90 Active Gabapentin 100 MG Oral for 90 Active Timolol Maleate 0.5 % Ophthalmic for 90 Active Immunizations Vaccine Route Administration Date Status Comme nts Influenza Unknown 06/01/2023 Administered Social History Tobacco Use: Social History Observation Description Date Details (start date - stop date) Never Smoker NA - NA Tobacco Use/Smoking Question Answer Notes Patient is [...] Never (0 point) Points 2 Interpretation Negative Problems Problem Type SNOMED Code ICD Code Onset Dates Problem Status W/U Status Risk Notes Problem Change in bowel habit (50111696) Change in bowel habit (R19.4) Active confirmed Problem Atrophic gastritis (05757554) Unspecified chronic gastritis without bleeding (K29.50) Active confirmed Problem Diverticulosis o f large intestine without perforation or abscess without bleeding (K57.30) Active confirmed Problem Abnormal weight loss (423133978) Abnormal weight loss (R63.4) Active confirmed Encounters Encounter Location Date Provider Diagnosis [facility] [address] [place] [address] 01/26/2024 Bernard Paez Plan Of Treatment Future Test Test Name Order Date UPPER GI ENDOSCOPY 11/30/2023 COLONOSCOPY 11/30/2023 Insurance Providers Payer Name Payer Address Payer Phone Subscriber Number Group Number Insured Name Patient Relationship to Insured Coverage Start Date Coverage End Date MEDICARE OF [place] [address] [place], [place] [id number] [phone] [id number] SHEILA CARBAJAL Self - patient is the insured [employer] [address] [place] [address] [id number] SHEILA ANDREWS Self - patient is the insured Medical (General) History Medical History History ICD Code High blood pressure white coat syndrome Neuropathy in the feet Denies OR,DM,CVA,Lung disease,renal dise ase Negative screening colonoscopy in 2010 Surgical History Surgery Date(Month/Year) Tonsillectomy 1947 Nephrectomy on the right for renal arter y stenosis 1960 Hemorrhoidectomy 1975
--- OUTSIDE RECORDS SUMMARY | 2025-01-25 09:58 | XMS_ITS | Patient Health Record ---
Author Organization [facility] Address [address] [facility] [address] [facility] [place] [address] Care Team Providers Care Control Inspector Name Role Phone Anthony Braga MD Primary Care Provider [place] Unavailable [phone] Allergies Allergen (clinical drug ingredient) Drug/Non Drug Allergy documented on EMR Reaction Allergy Type Onset Date Status adhesive tape skin irritation Drug Allergy Active Reason For Referral No Information Medications Medication SIG (Take, Route, Frequency, Duration) Notes Start Date End Date Status Timolol Hemihydrate 0.5 % 1 drop into af fected eye Ophthalmic Once a day Active Problems Problem Type SNOMED Code ICD Code Onset Dates Problem Status W/U Status Risk Notes Problem Disorder of joint of ankle and/or foot (362760703) Arthritis - Degenerative (719.97) Active confirmed Problem Neuralgia - Neuritis (729.2) Active confirmed Problem Hallux rigidus (4347223) Hallux Rigidus (735.2) Active confirmed Problem Acquired deformity of joint of big toe (disorder) (974977380) Hallux Limitus (735.8) Active confirmed Problem Pain in limb (77504545) Pain in Limb (729.5) Active confirmed Problem Exostosis (69965757) Exostosis (726.91) Active confirmed Plan Of Treatment Pending Test Test Name Order Date X ray : Foot, left 2V 03/22/2012 X ray : Foot, right 2V 03/22/2012 Insurance Providers Payer Name Payer Address Payer Phone Subscriber Number Group Number Insured Name Patient Relationship to Insured Coverage Start Date Coverage End Date Medicare [employer] [address] [place] [address] [id number] Verito Pendleton Self - patient is the insured 1 [employer] [address] [place] [phone] [id number] Dann Finch Spouse - patient is the spouse of the insured Medical (General) History Medical History History ICD Code back, hip, knee pain cataracts chicken pox glaucoma measles osteoarthritis skin cancer sinuse conditions transfusions Surgical History Surgery Date(Month/Year) nephrectomy 1960 carpal tunnel surgery 2006 tonsillectomy and adenoidectomy 194 wisdom teeth extraction 1964 deviated septum repair 1964 hemorrhoidectomy 1971
== END 2025-01-25 09:40 | disposition home or self-care (01) ==
LOC: HO.HMGCLDS 09:39
PROVIDERS: PCP Internal Medicine; Visit Provider Nurse Practitioner Adult Health
DX: Z78.0 Asymptomatic menopausal state (principal)
CPT/HCPCS: 36415; 82306

== ENCOUNTER 2025-03-14 09:42 | Outpatient (REF) | payer MEDICARE, OTHER, SELFPAY ==
--- OUTSIDE RECORDS SUMMARY | 2024-01-10 10:40 | XMS_ITS ---
Author Organization [facility] Address [address] [place] [address] Care Team Providers Care Pavilion Cutter Name Role Phone Rebecca Rust MD Primary Care Provider Bernard Sorensen [phone] REASON FOR VISIT abn wt loss, change in bowel habit Problems Problem Type SNOMED Code ICD Code Onset Dates Problem Status W/U Status Risk Notes Problem Diverticular disease of colon (500152718) Diverticulosis of large intestine without perforation or abscess without bleeding (K57.30) Active confirmed Problem Atrophic gastritis (19612644) Unspecified chronic gastritis without bleeding (K29.50) Active confirmed Encounters Encounter Location Date Provider Diagnosis [facility] [place] Outpatient [address] [place], [place] [phone] 01/10/2024 Bernard Paez Change in bowel little [...] * SHEILA ANDREWSDOB:[birth year] (80 yo F)Acc No.[id number]:01/10/2024 EGD and COL/MAC Patient: SHEILA PATEL Provider: Jyoti Paez MD :1945 A ge:78 Y S ex:Female Date:01/10/2024 Address:[address] [place] [address] Pcp:Rebecca Rust MD Subjective: * Chief Complaints: [...] FLW-UP 10 YRS DOCD, Modifiers: 1P , 47923 UPPER GI ENDOSCOPY, BIOPSY * * The named appointment provid er may or may not be the originator of this progress note, and it is not deemed complete until electronically signed by the appointment provider. Sign off status: Pending * Provider: Jyoti Paez MD Date: 0 01/10/2024 Generated for Alfredito machado/Janie/eTransmitting on: 0 03/14/2025 10:42 AM EDT
--- OUTSIDE RECORDS SUMMARY | 2025-03-14 10:42 | XMS_ITS | Patient Health Record ---
Author Organization [facility] Address [address] [place] [address] Care Team Providers Care Curam Developer Name Role Phone Rebecca Rust MD Primary Care Provider Bernard Sorensen [phone] Allergies Allergen (clinical drug ingredient) Drug/Non Drug [...] Risk Notes Problem Change in bowel habit (45926901) Change in bowel habit (R19.4) Active confirmed Problem Atrophic gastritis (00601798) Unspecified chronic gastritis without bleeding (K29.50) Active confirmed Problem Diverticular disease of colon (032994509) Diverticulosis of large intestine without perforation or abscess without bleeding (K57.30) Active confirmed Problem Abnormal weight loss (437169766) Abnormal weight loss (R63.4) Active confirmed Plan Of Treatment Future Test Test Name Order Date UPPER GI ENDOSCOPY 11/30/2023 COLONOSCOPY 11/30/2023 Insurance Providers Payer Name Payer Address Payer Phone Subscriber Number Group Number Insured Name Patient Relationship to Insured Coverage Start Date Coverage End Date MEDICARE OF [place] [address] [place] [address] [phone] [id number] SHEILA ANDREWS Self - patient is the insured [employer] [address] [place] [address] [id number] SHEILA ANDREWS Self - patient is the insured Medical (General) History Medical History History ICD Code High blood pressure white coat syndrome Neuropathy in the feet Denies MS,DM,CVA,Lung disease,renal dise ase Negative screening colonoscopy in 2010 Surgical History Surgery Date(Month/Year) Tonsillectomy 1947 Nephrectomy on the right for renal arter y stenosis 1960 Hemorrhoidectomy 1975
--- OUTSIDE RECORDS SUMMARY | 2025-03-14 10:43 | XMS_ITS | Patient Health Record ---
Author Organization [facility] Address [address] [facility] [place] [address] Care Team Providers Care Tongue And Groove Machine Feeder Name Role Phone Anthony Braga MD Primary Care Provider [place] Unavailable [phone] Allergies Allergen (clinical drug ingredient) Drug/Non Drug [...] Disorder of joint of ankle and/or foot (481733845) Arthritis - Degenerative (719.97) Active confirmed Problem Neuralgia - Neuritis (729.2) Active confirmed Problem Hallux rigidus (6073949) Hallux Rigidus (735.2) Active confirmed Problem Acquired deformity of joint of big toe (disorder) (355419211) Hallux Limitus (735.8) Active confirmed Problem Pain in limb (98727696) Pain in Limb (729.5) Active confirmed Problem Exostosis (59801674) Exostosis (726.91) Active confirmed Plan Of Treatment Pending Test Test Name Order Date X ray : Foot, left 2V 03/22/2012 X ray : Foot, right 2V 03/22/2012 Insurance Providers Payer Name Payer Address Payer Phone Subscriber Number Group Number Insured Name Patient Relationship to Insured Coverage Start Date Coverage End Date Medicare National [employer] [address] [place] [address] [id number] Verito Pendleton Self - patient is the insured 1 [employer] [address] [place] [phone] [id number] Dann Finch Spouse - [...]
[2025-03-14 12:58] LABS: MANUAL DIFF FLAG NO
[2025-03-14 13:08] LABS: Hematocrit 44.9 % (37.0-47.0); Hemoglobin 14.6 g/dl (12.0-16.0); Imm Gran Abs Auto 0.02 X10*3/uL (0.00-0.03); Imm Gran Pct Auto 0.2 % (0.0-0.4); Lymphocytes Absolute Auto 2.1 X10*3/uL (1.2-4.9); Mean Corpuscular HGB Conc 32.5 g/dl (31.0-35.0); Mean Corpuscular Hemoglobin 29.6 pg (27.0-33.0); Mean Corpuscular Volume 91.1 fL (80.0-98.0); NRBC Abs Auto 0.000 X10*3/uL (0.0-0.012); NRBC Pct Auto 0.0 /100WBC (0.0-0.2); Platelet Count 207 X10*3/uL (160-400); Red Blood Count 4.93 X10*6/uL (4.20-5.50); White Blood Count 8.0 X10*3/uL (4.8-10.8)
[2025-03-14 13:46] LABS: Alanine Aminotransferase 16 U/L (0-31); Albumin Level 4.8 g/dL (3.5-5.0); Alkaline Phosphatase 73 U/L (39-117); Anion Gap 13 (12-20); Aspartate Amino Transferase 31 U/L (5-31); Blood Urea Nitrogen 15 mg/dL (9-16); Calcium 9.7 mg/dL (8.4-10.2); Carbon Dioxide 27 mmol/L (22-29); Chloride 103 mmol/L (96-108); Cholesterol 230 mg/dL (<200); Estimated Glomerular Filt Rate 57; HDL Cholesterol 46 mg/dL (>40); Potassium 4.0 mmol/L (3.3-5.1); Sodium 139 mmol/L (135-145); Total Protein 7.9 g/dL (6.5-8.0); Triglycerides 187 mg/dL (<150)
[2025-03-19 01:33] LABS: Vitamin D 25-OH, D2 <4 ng/mL; Vitamin D 25-OH, D3 54 ng/mL; Vitamin D 25-OH, Total 54 ng/mL (30-100)
== END 2025-03-14 09:43 | disposition home or self-care (01) ==
LOC: HO.HMGCLDS 09:42
PROVIDERS: PCP Internal Medicine; Visit Provider Internal Medicine
DX: Z00.00 Encounter for general adult medical examination without abnormal findings (principal); I10 Essential (primary) hypertension; G62.9 Polyneuropathy, unspecified; E55.9 Vitamin D deficiency, unspecified
CPT/HCPCS: 36415; 80053; 80061; 82306; 84443; 85025

== ENCOUNTER 2025-03-19 09:41 | Outpatient (AMB) | payer MEDICARE, OTHER, SELFPAY ==
--- OUTSIDE RECORDS SUMMARY | 2024-01-10 10:40 | XMS_ITS ---
Author Organization [facility] Address [address] [place] [address] Care Team Providers Care Customer Success Director Name Role Phone Rebecca Rust MD Primary Care Provider Bernard Sorensen [phone] REASON FOR VISIT abn wt loss, change in bowel habit Problems Problem Type SNOMED Code ICD Code Onset Dates Problem Status W/U Status Risk Notes Problem Diverticular disease of colon (418454638) Diverticulosis of large intestine without perforation or abscess without bleeding (K57.30) Active confirmed Problem Atrophic gastritis (41143073) Unspecified chronic gastritis without bleeding (K29.50) Active confirmed Encounters Encounter Location Date Provider Diagnosis [facility] [place] Outpatient [address] [place], [place] [phone] 01/10/2024 Bernard Paez Change in bowel little [...] * SHEILA ANDREWSDOB:[birth year] (80 yo F)Acc No.[id number]:01/10/2024 EGD and COL/MAC Patient: SHEILA PATEL Provider: Jyoti Paez MD :1945 A ge:78 Y S ex:Female Date:01/10/2024 Address:[address] [place] [address] Pcp:Rebecca Rust MD Subjective: * Chief Complaints: [...] FLW-UP 10 YRS DOCD, Modifiers: 1P , 76827 UPPER GI ENDOSCOPY, BIOPSY * * The named appointment provid er may or may not be the originator of this progress note, and it is not deemed complete until electronically signed by the appointment provider. Sign off status: Pending * Provider: Jyoti Paez MD Date: 0 01/10/2024 Generated for Alfredito machado/Janie/eTransmitting on: 0 03/19/2025 11:05 AM EDT
[2025-03-19 09:46] VITALS: BP 138/88; PULSE 66; RESP 17; TEMP 36.7; O2SAT 97; BMI 17.8
--- NOTE | 2025-03-19 09:46 | AM.OFFVISMDC ---
Intake Vital Signs 03/19/25 09:46 Height 5 ft 4 in Weight 104 lb BMI 17.8 BP 138/88 Blood Pressure Location Rt brachial Position Sitting Respiration 17 Pulse 66 Pulse Source Pulse Oximeter Temp 98.0 F Temp Source Oral Pulse Oximetry (%) 97 Oxygen Delivery Method Room Air Intake Visit Reasons: SWV G0439 Allergies simvastatin Adverse Reaction (Unknown, Verified 03/19/25 09:57) myopathy Adhesive Bandages Allergy (Unknown, Uncoded 03/19/25 09:57) skin reaction Adhesive Tape Allergy (Unknown, Uncoded 03/19/25 09:57) skin reaction Chloramphenicol Adverse Reaction (Unknown, Uncoded 03/19/25 09:57) nausea and vomiting Medication List - Last Reconciled 03/19/25 by Rebecca Rust MD latanoprostene bunod 0.024% (Vyzulta) 1 drp ophthalmic (eye) DAILY losartan 25 mg PO DAILY timolol maleate 0.5% drps ophthalmic (eye) HPI V G0439 HPI Details Initiated the conversation about Advanced Directives. Advanced Directives help? patients prepare for current and future decisions about their medical treatment? and place of care. Discussed with patient that it is a process where a patients? current condition and prognosis are reviewed, their wishes for information? regarding their illness are elicited, and likely medical dilemmas are presented? and options discussed. The form can be amended as needed, reviewed yearly and? make changes as needed IPPE/AWV ? year old presents? for her ? Annual? Wellness Visit, initial visit.? Medical / Social History Reviewed? Past Medical History ?Yes? . ? [place]? of Care / Care Team list updated ?Yes . ? Surgical/Hospitalization? History ?Yes . ? Current Medications? (including OTC and supplements) ?Yes . ? Family History ?Yes? . ? Tobacco? Control form ?Yes . ? AUDIT-C (Alcohol use) form? ?Yes . ? Illicit drug use in Social? History ?Yes . ? Current diagnosis of? depression? ?No ? Appropriate PHQ2/PHQ9? completed ?Yes . ? Data entered by ?Medical? Database Coordinator and reviewed by provider ? Fall Risk ? Fall? History? Have you had any falls with? injury in the past year? ?No . ? Have you had two or more? falls in the past year? ?No . ? Fall Risk Assessment: ?No? falls in the past year . ? HRA filled out by? the patient, reviewed by Provider and scanned. ? IPPE/AWV ? Balance? [place]berg? ?Yes . ? Tandem? walk ?Yes . ? Walk and? Turn ?Yes . ? Rise from? sit to stand ?Yes . ?Vision? Corrective? lens ?Yes ? Vision? screen ? Up-to-date, has an appointment [] for vision? screening and glaucoma screening ?Hearing? Whisper? test ?pass .? Initiated the conversation about Advanced Directives. Advanced Directives help? patients prepare for current and future decisions about their medical treatment? and place of care. Discussed with patient that it is a process where a patients? current condition and prognosis are reviewed, their wishes for information? regarding their illness are elicited, and likely medical dilemmas are presented? and options discussed. The form can be amended as needed, reviewed yearly and? make changes as needed Written? Plan?Completed. See Patient? Documents. Pt c/o low energy, insomnia, feeling overwhelmed, decrease appetite. Patient denies suicide ideation but reports feeling depressed. [facility] Medical History (Updated 03/19/25 @ 15:48 by Rebecca Rust MD) Depression Hx of osteoporosis Carotid artery bruit Hyperlipemia Glaucoma Neuropathy Hx of screening mammography Basal cell adenoma Annual physical exam Surgical History Hx of bilateral cataract extraction Hx of tonsillectomy History of nephrectomy, right H/O hemorrhoidectomy Hx of colonoscopy Family History Father Heart problem History of multiple strokes Heart attack Mother Heart problem CHF (congestive heart failure) Social History Housing: House Patient Tobacco Use Status: Never used Tobacco e-Cigarette/Vaping Use: Never Used service: No Current occupational status: retired Cognitive needs: No Hearing needs: No Vision needs: Yes Questionnaire Medicare Wellness Checkup [age] What gender do you identify with?: female During the past 4 weeks, how much have you been bothered by emotional problems such as feeling anxious, depressed, irritable, sad or downhearted, and blue?: not at all During the past 4 weeks, has your physical & emotional health limited your social activities with family, friends, neighbors, or groups?: not at all During the past 4 weeks, how much bodily pain have you generally had?: moderate pain During the past 4 weeks, was someone available to help you if you needed & wanted help?: yes, as much as I wanted During the past 4 weeks, what was the hardest physical activity you could do for at least 2 minutes?: moderate Can you get to places out of walking distance without help? (For eg., can you travel alone on buses, taxis or drive your car?): Yes Can you go shopping for groceries or clothes without someone's help?: Yes Can you prepare your own meals?: Yes Can you do your housework without help?: Yes Because of any health problems, do you need the help of another person with your personal care needs such as eating, bathing, dressing or getting around the house?: No Can you handle your own money without help?: Yes During the past 4 weeks, how would you rate your health in general?: good During the past 4 weeks how have things been going for you?: good & bad parts about equal Are you having difficulties driving your car?: no Do you always fasten your seat belt when you are in a car?: yes, usually During past 4 weeks, have you been bothered by the following: never: Falling or dizzy when standing up, Sexual problems?, Trouble eating well?, Teeth or denture problems? and Problems using the telephone? and often: Tiredness or fatigue? Have you fallen 2 or more times in the past year?: No Are you afraid of falling?: No Are you a smoker?: no During the past 4 weeks, how many drinks of wine, beer, or other alcoholic beverages did you have?: 1 drink or less per week Do you exercise for about 20 minutes 3 or more times a week?: no, I usually do not exercise this much Have you been given information to help with the following?: no: Hazards in your house that might hurt you? and no: Keeping track of your medications? How often do you have trouble taking medicines the way you have been told to take them?: I always take medicine as prescribed How confident are you that you can control & manage most of your health problems?: somewhat confident What is your race?: White Mini Mental State Exam (MMSE) Orientation What is the (year) (season) (date) (day) (month)?: year, season, date, day and month Where are we (state) (county) (town or city) (hospital) (floor)?: state, county, town or city, hospital/clinic and floor Registration Name of 3 unrelated objects clearly and slowly, then ask patient to repeat all 3 of them. (1st repeat determines score. Make sure they can repeat all three): object 1, object 2 and object 3 Attention & Calculation (CHOOSE ONE) Spell WORLD backwards (DLROW): 5 letters Recall Ask patient to repeat the 3 items from question #3.: object 1, object 2 and object 3 Language Show patient a wristwatch & ask what it is. Repeat for pencil.: watch and pencil Ask the patient to repeat the phrase 'No ifs, ands, or buts' after you.: correct Ask the patient to 'take a piece of paper with their right hand' 'fold paper in half' 'place paper on floor': take paper in right hand, fold paper in half and place paper on floor Print the sentence 'CLOSE YOUR EYES' on a piece. If patient actually closes eyes then score.: followed written direction Give patient a blank piece of paper & ask to write a sentence. Score if it contains a noun & verb.: sentence contains subject and verb Score Score: 29 PHQ-9 Over the last 2 weeks, how often have you been bothered by any of the following problems? 1. Little interest or pleasure in doing things: several days 2. Feeling down, depressed, or hopeless: not at all 3. Trouble falling or staying asleep, or sleeping too much: more than half the days 4. Feeling tired or having little energy: more than half the days 5. Poor appetite or overeating: not at all 6. Feeling bad about yourself - or that you are a failure or have let yourself or your family down: not at all 7. Trouble concentrating on things, such as reading the newspaper or watching television: not at all 8. Moving or speaking so slowly that other people could have noticed. Or the opposite - being so fidgety or restless that you have been moving around a lot more than usual: not at all 9. Thoughts that you would be better off or of hurting yourself in some way: not at all Total score: 5 Depression Screening Interpretation: Negative Depression Screening Done: Yes 65470 - PHQ-9 Billing: Yes Source: Developed by Drs. Bernard Madison, Mariel Victoria, Aj Rider and colleagues, with an educational glenn from [employer]. Review of Systems Const All systems reviewed & are unremarkable except as noted in HPI and below Eyes Reports no additional complaints ENT Reports no additional complaints Card Reports no additional complaints Resp Reports no additional complaints GI Reports no additional complaints Reports no additional complaints Physical Exam Vital Signs: Last Vital Signs Temp 98.0 F 03/19/25 09:46 Pulse 66 03/19/25 09:46 Resp 17 03/19/25 09:46 Pulse Ox 97 03/19/25 09:46 Oxygen Delivery Method Room Air 03/19/25 09:46 BMI result Body Mass Index 17.8 Const General: no acute distress HEENT Head: Yes normal to inspection Ears: TM's normal bilaterally Eyes General: appearance normal, both eyes and all related structures Neck Neck: Yes supple Resp Effort & Inspection: normal respiratory effort Auscultation: clear to auscultation bilaterally Cardio Rhythm: regular rhythm Heart sounds: S1 normal heart sound present and S2 normal heart sound present GI Inspection: Yes normal to inspection Palpation (GI): Soft to palpation Percussion: Yes normal to percussion Auscultation: normal bowel sounds Extrem General: Yes no clubbing, cyanosis or edema Assessment & Plan Assessment & Plan (1) Annual physical exam: Comment: Patient had negative colonoscopy 01/2024 Code(s): Z00.00 - Encounter for general adult medical examination without abnormal findings Plan: Well-balanced diet regular physical activity protein reach diet discussed with the patient. (2) Hyperlipemia: Comment: Intolerant to multiple statins Code(s): E78.5 - Hyperlipidemia, unspecified Plan: Continue low-cholesterol diet (3) HTN (hypertension): Code(s): I10 - Essential (primary) hypertension Plan: Blood pressure is elevated and losartan will be increased to 25 mg twice a day. Patient will follow-up in 1 month (4) Hyperglycemia: Code(s): R73.9 - Hyperglycemia, unspecified Plan: ADA diet regular physical activity discussed with the patient check A1c before next visit (5) Osteoporosis: Comment: DEXA 04/2022 T score -2.7,, PATIENT REFUSES TREATMENT, REPEAT DEXA ORDERED BY MATERIAL PREPARATION WORKER BELA Villarreal, patient declined treatment for osteoporosis, she is not interested in seeing termite treater Code(s): M81.0 - Age-related osteoporosis without current pathological fracture Plan: Continue vitamin-D supplement and weight-bearing exercises. (6) Vitamin D deficiency: Code(s): E55.9 - Vitamin D deficiency, unspecified Plan: Patient needs to stay on the same dose of vitamin-D replacement to keep vitamin-D level between 50 and 100 (7) Depression: Code(s): F32.A - Depression, unspecified Plan: Stress management discussed with the patient's start mirtazapine 7.5 mg at the bedtime and follow-up in 1 month. Patient declined referral to counseling Orders: Orders Hemoglobin A1c 1 Month E78.5 - Hyperlipidemia, unspecified, R73.9 - Hyperglycemia, unspecified, Z00.00 - Encounter for general adult medical examination without abnormal findings Lipid Panel 1 Month E78.5 - Hyperlipidemia, unspecified, R73.9 - Hyperglycemia, unspecified Comprehensive Met. Panel 1 Month I10 - Essential (primary) hypertension Medications: New mirtazapine 7.5 mg PO BEDTIME 30 tabs 2RF hydrocortisone acetate (Proctocort) 30 mg CA BID 12 ea 0RF Changed From losartan 25 mg PO DAILY 90 tabs 1RF To losartan 25 mg PO BID 180 tabs 1RF Quality Reporting (2019) Depression/Bipolar (159/160/161/177) PHQ-9: Total score: 5 Coding Level of Care Code Medicare Subsequent (G0439) Diagnoses Annual physical exam Z00.00 Hyperlipemia E78.5 HTN (hypertension) I10 Hyperglycemia R73.9 Osteoporosis M81.0 Vitamin D deficiency E55.9 Depression F32.A CPT Codes Advance Care Planning - Advance Care Planning discussion: On file, no changes ([id number]) Advance Care Planning - Time spent: 1-15 minutes, on File ([id number]) Additional Codes PHQ-9 - 88319 - PHQ-9 Billing: Yes ([id number]) Advance Care Planning Advance Care Planning discussion: On file, no changes Forms completed: Health Care Proxy Time spent: 1-15 minutes, on File Did not discuss due to Cultural/Spiritual beliefs: Yes
--- OUTSIDE RECORDS SUMMARY | 2025-03-19 11:05 | XMS_ITS | Patient Health Record ---
Author Organization [facility] Address [address] [place] [address] Care Team Providers Care Genetics Nurse Name Role Phone Rebecca Rust MD Primary Care Provider Bernard Sorensen [phone] Allergies Allergen (clinical drug ingredient) Drug/Non Drug [...] Risk Notes Problem Change in bowel habit (06662226) Change in bowel habit (R19.4) Active confirmed Problem Atrophic gastritis (27182245) Unspecified chronic gastritis without bleeding (K29.50) Active confirmed Problem Diverticular disease of colon (523199113) Diverticulosis of large intestine without perforation or abscess without bleeding (K57.30) Active confirmed Problem Abnormal weight loss (463026312) Abnormal weight loss (R63.4) Active confirmed Plan Of Treatment Future Test Test Name Order Date UPPER GI ENDOSCOPY 11/30/2023 COLONOSCOPY 11/30/2023 Insurance Providers Payer Name Payer Address Payer Phone Subscriber Number Group Number Insured Name Patient Relationship to Insured Coverage Start Date Coverage End Date MED[place]ARE [place] [address] [place] [address] [phone] [id number] SHEILA ANDREWS Self - patient is the insured [employer] [address] [place] [address] [id number] SHEILA ANDREWS Self - patient is the insured Medical (General) History Medical History History ICD Code High blood pressure white coat syndrome Neuropathy in the feet Denies MA,DM,CVA,Lung disease,renal dise ase Negative screening colonoscopy in 2010 Surgical History Surgery Date(Month/Year) Tonsillectomy 1947 Nephrectomy on the right for renal arter y stenosis 1960 Hemorrhoidectomy 1975
== END 2025-03-19 11:17 | disposition home or self-care (01) ==
LOC: HO.HMCC 09:42
PROVIDERS: PCP Internal Medicine; Visit Provider Internal Medicine
DX: Z00.00 Encounter for general adult medical examination without abnormal findings (principal); E78.5 Hyperlipidemia, unspecified; I10 Essential (primary) hypertension; R73.9 Hyperglycemia, unspecified; M81.0 Age-related osteoporosis without current pathological fracture; E55.9 Vitamin D deficiency, unspecified; F32.A Depression, unspecified

== ENCOUNTER → 2025-03-19 09:41 | Outpatient (BNVA) | payer MEDICARE, OTHER, SELFPAY | PROVIDERS: PCP Internal Medicine; Visit Provider Internal Medicine | DX: Z00.00 Encounter for general adult medical examination without abnormal findings (principal); E78.5 Hyperlipidemia, unspecified; I10 Essential (primary) hypertension; R73.9 Hyperglycemia, unspecified; M81.0 Age-related osteoporosis without current pathological fracture; E55.9 Vitamin D deficiency, unspecified; F32.A Depression, unspecified | CPT/HCPCS: 96127 ==

== ENCOUNTER 2025-03-23 11:41 | Outpatient (AMB) | payer MEDICARE, OTHER, SELFPAY ==
--- OUTSIDE RECORDS SUMMARY | 2024-01-10 10:40 | XMS_ITS ---
Author Organization [facility] Address [address] [place] [address] Care Team Providers Care Salesperson [employer] Name Role Phone Rebecca Rust MD Primary Care Provider Bernard Sorensen [phone] REASON FOR VISIT abn wt loss, change in bowel habit Problems Problem Type SNOMED Code ICD Code Onset Dates Problem Status W/U Status Risk Notes Problem Diverticular disease of colon (361085123) Diverticulosis of large intestine without perforation or abscess without bleeding (K57.30) Active confirmed Problem Atrophic gastritis (64542697) Unspecified chronic gastritis without bleeding (K29.50) Active confirmed Encounters Encounter Location Date Provider Diagnosis [facility] [place] [address] [place], [place] [phone] 01/10/2024 Bernard Paez Change in bowel little [...] * SHEILA ANDREWSDOB:[birth year] (80 yo F)Acc No.[id number]:01/10/2024 EGD and COL/MAC Patient: SHEILA PATEL Provider: Jyoti Paez MD :1945 A ge:78 Y S ex:Female Date:01/10/2024 Address:[address] [place] [address] Pcp:Rebecca Rust MD Subjective: * Chief Complaints: [...] FLW-UP 10 YRS DOCD, Modifiers: 1P , 44719 UPPER GI ENDOSCOPY, BIOPSY * * The named appointment provid er may or may not be the originator of this progress note, and it is not deemed complete until electronically signed by the appointment provider. Sign off status: Pending * Provider: Jyoti Paez MD Date: 0 01/10/2024 Generated for Alfredito machado/Janie/eTransmitting on: 0 03/23/2025 02:08 PM EDT
[2025-03-23 11:54] VITALS: BP 120/82; PULSE 80; TEMP 36.9; O2SAT 97; BMI 17.8
--- NOTE | 2025-03-23 11:54 | MHC.PC.OV ---
Vital Signs 03/23/25 11:54 Height 5 ft 4 in Weight 104 lb BMI 17.8 BP 120/82 Blood Pressure Location Lt brachial Position Sitting Pulse 80 Pulse Source Pulse Oximeter Temp 98.4 F Temp Source Oral Pulse Oximetry (%) 97 Oxygen Delivery Method Room Air Intake Visit Reasons: Ears lavage-ok per dr Rust Allergies simvastatin Adverse Reaction (Unknown, Verified 03/19/25 09:57) myopathy Adhesive Bandages Allergy (Unknown, Uncoded 03/19/25 09:57) skin reaction Adhesive Tape Allergy (Unknown, Uncoded 03/19/25 09:57) skin reaction Chloramphenicol Adverse Reaction (Unknown, Uncoded 03/19/25 09:57) nausea and vomiting Medication List - Last Reconciled 03/23/25 by Rebecca Rust MD hydrocortisone acetate (Proctocort) 30 mg AR BID latanoprostene bunod 0.024% (Vyzulta) 1 drp ophthalmic (eye) DAILY losartan 25 mg PO BID timolol maleate 0.5% drps ophthalmic (eye) Tobacco use date assessed: 07/18/24 Dental Screening Dental Screen Date: 07/18/24 HPI Ears lavage-ok per dr Rust HPI Details PATIENT PRESENTS FOR THE FOLLOW-UP. HYPERTENSION IS CONTROLLED ON LOSARTAN. PATIENT DECIDED NOT TO TAKE MIRTAZAPINE BECAUSE IT CAN POTENTIALLY INCREASE INTRA-OCULAR PRESSURE AND PATIENT FOLLOWS UP WITH SPEECH THERAPY TEACHER FOR NORMAL PRESSURE GLAUCOMA. Anxiety and insomnia are improved. COUNT INCLUDES THE [facility] Medical History (Updated 03/23/25 @ 12:28 by Rebecca Rust MD) Hx of osteoporosis Carotid artery bruit Hyperlipemia Glaucoma Neuropathy Hx of screening mammography Basal cell adenoma Annual physical exam Surgical History Hx of bilateral cataract extraction Hx of tonsillectomy History of nephrectomy, right H/O hemorrhoidectomy Hx of colonoscopy Family History Father Heart problem History of multiple strokes Heart attack Mother Heart problem CHF (congestive heart failure) Social History Housing: House Patient Tobacco Use Status: Never used Tobacco e-Cigarette/Vaping Use: Never Used service: No Current occupational status: retired Cognitive needs: No Hearing needs: No Vision needs: Yes Questionnaire Thrive Questionnaire Date Thrive assessed: 07/18/24 I am a: Patient What is your living situation today?: I have a steady place to live Within the past 12 months, did the food you bought not last and you didn't have the money to get more?: Never true Within the past 12 months, did you worry whether your food would run out before you got money to buy more?: Never true Do you have trouble paying for medicines?: No Do you have trouble getting transportation to medical appointments?: No Do you have trouble paying your heating and electricity bill?: No Do you have trouble taking care of your child, family member or friend?: No Do you have trouble with day-to-day activities such as bathing, preparing meals, shopping, managing finances, etc.?: No Are you currently unemployed and looking for a job?: No Are you interested in more education?: No Please select the resources that you would like help with: None Currently or been in a relationship where the following occur: I choose not to answer THRIVE Score: 0 DENI-7 AMB Questionnaire DENI-7 Date DENI - 7 assessed: 07/18/24 Source: Developed by Drs. Bernard Madison, Mariel Victoria, Aj Rider and colleagues, with an educational glenn from [employer]. Review of Systems Const All systems reviewed & are unremarkable except as noted in HPI and below ENT Reports no additional complaints Card Reports no additional complaints Resp Reports no additional complaints GI Reports no additional complaints Reports no additional complaints Physical exam (Primary Care) Vital Signs: Last Vital Signs Temp 98.4 F 03/23/25 11:54 Pulse 80 03/23/25 11:54 BP 120/82 03/23/25 11:54 Pulse Ox 97 03/23/25 11:54 Oxygen Delivery Method Room Air 03/23/25 11:54 BMI result Body Mass Index 17.8 Tobacco/Smoking Status: Tobacco use Status Tobacco use date assessed 07/18/24 03/23/25 11:55 Patient Tobacco Use Status Never used Tobacco 03/23/25 11:55 e-Cigarette/Vaping Use Never Used 03/23/25 11:55 Thrive Assessment: Date of Thrive Assessment Date Thrive assessed 07/18/24 03/23/25 11:55 Currently or been in a relationship where the following occur: I choose not to answer Const General: no acute distress HENMT Ears: TM's normal bilaterally Mouth: Normal oral and palatal mucosa present Eyes General: appearance normal, both eyes and all related structures Resp Effort & Inspection: normal respiratory effort Auscultation: clear to auscultation bilaterally Cardio Rhythm: regular rhythm Heart sounds: S1 normal heart sound present and S2 normal heart sound present Coding Level of Care Code Est Pt Level 3 (70230) Diagnoses HTN (hypertension) I10 Anxiety F41.9 Glaucoma H40.9 Assessment & Plan Assessment & Plan (1) HTN (hypertension): Code(s): I10 - Essential (primary) hypertension Category: Medical Plan: Continue losartan (2) Anxiety: Code(s): F41.9 - Anxiety disorder, unspecified Category: Medical Plan: Stress management regular physical activity discussed with the patient (3) Glaucoma: Code(s): H40.9 - Unspecified glaucoma Category: Medical Plan: Follow-up with ophthalmology Medications: Discontinued mirtazapine Discontinued Reason: Doctor's Order 7.5 mg PO BEDTIME 30 tabs 2RF
--- OUTSIDE RECORDS SUMMARY | 2025-03-23 14:08 | XMS_ITS | Patient Health Record ---
Author Organization [facility] Address [address] [place] [address] Care Team Providers Care Film Processor Name Role Phone Rebecca Rust MD Primary Care Provider Bernard Sorensen [phone] Allergies Allergen (clinical drug ingredient) Drug/Non Drug [...] Risk Notes Problem Change in bowel habit (85409784) Change in bowel habit (R19.4) Active confirmed Problem Atrophic gastritis (12572827) Unspecified chronic gastritis without bleeding (K29.50) Active confirmed Problem Diverticular disease of colon (378921297) Diverticulosis of large intestine without perforation or abscess without bleeding (K57.30) Active confirmed Problem Abnormal weight loss (036426383) Abnormal weight loss (R63.4) Active confirmed Plan Of Treatment Future Test Test Name Order Date UPPER GI ENDOSCOPY 11/30/2023 COLONOSCOPY 11/30/2023 Insurance Providers Payer Name Payer Address Payer Phone Subscriber Number Group Number Insured Name Patient Relationship to Insured Coverage Start Date Coverage End Date [place]ARE OF [place] [address] [place] [address] [phone] [id number] SHEILA ANDREWS Self - patient is the insured [employer] [address] [place] [address] [id number] SHIELA ANDREWS Self - patient is the insured Medical (General) History Medical History History ICD Code High blood pressure white coat syndrome Neuropathy in the feet Denies MS,DM,CVA,Lung disease,renal dise ase Negative screening colonoscopy in 2010 Surgical History Surgery Date(Month/Year) Tonsillectomy 1947 Nephrectomy on the right for renal arter y stenosis 1960 Hemorrhoidectomy 1975
--- OUTSIDE RECORDS SUMMARY | 2025-03-23 14:09 | XMS_ITS | Patient Health Record ---
Author Organization [facility] Address [address] [place] [address] Care Team Providers Care Floor Molder Name Role Phone Anthony Braga MD Primary Care Provider Eric Fisher Unavailable [phone] Allergies Allergen (clinical drug ingredient) Drug/Non Drug [...] Disorder of joint of ankle and/or foot (749019459) Arthritis - Degenerative (719.97) Active confirmed Problem Neuralgia - Neuritis (729.2) Active confirmed Problem Hallux rigidus (0978295) Hallux Rigidus (735.2) Active confirmed Problem Acquired deformity of joint of big toe (disorder) (888317838) Hallux Limitus (735.8) Active confirmed Problem Pain in limb (46615936) Pain in Limb (729.5) Active confirmed Problem Exostosis (82184366) Exostosis (726.91) Active confirmed Plan Of Treatment Pending Test Test Name Order Date X ray : Foot, left 2V 03/22/2012 X ray : Foot, right 2V 03/22/2012 Insurance Providers Payer Name Payer Address Payer Phone Subscriber Number Group Number Insured Name Patient Relationship to Insured Coverage Start Date Coverage End Date Medicare [employer] [address] [place] [address] [id number] Verito Pendleton Self - patient is the insured [employer] [address] [place] [id number] [phone] [id number] Dann Finch Spouse - [...]
== END 2025-03-23 12:28 | disposition home or self-care (01) ==
PROVIDERS: PCP Internal Medicine; Visit Provider Internal Medicine
DX: I10 Essential (primary) hypertension (principal); F41.9 Anxiety disorder, unspecified; H40.9 Unspecified glaucoma

== ENCOUNTER → 2025-03-23 11:41 | Outpatient (BNVA) | payer MEDICARE, OTHER, SELFPAY | PROVIDERS: PCP Internal Medicine; Visit Provider Internal Medicine | DX: I10 Essential (primary) hypertension (principal); F41.9 Anxiety disorder, unspecified; G47.00 Insomnia, unspecified; H40.9 Unspecified glaucoma; Z79.899 Other long term (current) drug therapy | CPT/HCPCS: 99212 ==

== ENCOUNTER 2025-05-11 09:32 | Outpatient (REF) | payer MEDICARE, OTHER, SELFPAY ==
--- OUTSIDE RECORDS SUMMARY | 2024-01-10 10:40 | XMS_ITS ---
Author Organization [facility] Address [address] [place] [address] Care Team Providers Care Digital Account Director Name Role Phone Rebecca Rust MD Primary Care Provider Bernard Sorensen [phone] REASON FOR VISIT abn wt loss, change in bowel habit Problems Problem Type SNOMED Code ICD Code Onset Dates Problem Status W/U Status Risk Notes Problem Diverticular disease of colon (558280332) Diverticulosis of large intestine without perforation or abscess without bleeding (K57.30) Active confirmed Problem Atrophic gastritis (05922771) Unspecified chronic gastritis without bleeding (K29.50) Active confirmed Encounters Encounter Location Date Provider Diagnosis [facility] [place] Out[place] [address] [place], [place] [phone] 01/10/2024 Bernard Paez Change in bowel little bits R19.4 ; Weight loss R63.4 ; Diverticulosis of large intestine without perforation or abscess without bleeding K57.30 ; Other hemorrhoids K64.8 ; Hiatal hernia K44.9 and Unspecified chronic gastritis without bleeding K29.50 Assessments Encounter Date Diagnosis (ICD Code) Assessment Notes Treatment Notes Treatment Clinical Notes Section Notes 01/10/2024 Change in bowel habits (ICD-10 - R19.4) 01/10/2024 Weight loss (ICD-10 - R63.4) 01/10/2024 Diverticulosis of large intestine without perforation or abscess without bleeding (ICD-10 - K57.30) 01/10/2024 Other hemorrhoids (ICD-10 - K64.8) 01/10/2024 Hiatal hernia (ICD-10 - K44.9) 01/10/2024 Unspecified chronic gastritis without bleeding (ICD-10 - K29.50) Plan Of Treatment No Information Progress Notes * SHEILA ANDRE[birth year]SDOB:[birth year] (80 yo F)Acc No.[id number]:01/10/2024 EGD and COL/MAC Patient: SHEILA PATEL Provider: Jyoti Paez MD :1945 A ge:78 Y S ex:Female Date:01/10/2024 Address:[address] [place] [address] Pcp:Rebecca Rust MD Subjective: * Chief Complaints: * 1 . Abn wt loss, change in bowel habit. * Medical History: Objective: * Vitals: Assessment: * Assessment: 1. C hange in bowel habits - R19.4 (Primary) 2 . W eight loss - R63.4 ? 3 . D iverticulosis of large intestine without perforation or abscess without bleeding - K57.30 4 . O ther hemorrhoids - K64.8 5 . H iatal hernia - K44.9 6 . U nspecified chronic gastritis without bleeding - K29.50 Plan: * Treatment: * Procedure Codes: 4 5378 DIAGNOSTIC COLONOSCOPY, 0529F INTRVL 3+YRS PTS CLNSCP DOCD, 0528F RCMND FLW-UP 10 YRS DOCD, Modifiers: 1P , 91393 UPPER GI ENDOSCOPY, BIOPSY * * The named appointment provid er may or may not be the originator of this progress note, and it is not deemed complete until electronically signed by the appointment provider. Sign off status: Pending * Provider: Jyoti Paez MD Date: 0 01/10/2024 Generated for Alfredito machado/Janie/eTransmitting on: 1 10:37 AM EDT
--- NOTE | ~2025-05-11 | MM_ITS ---
EXAMINATION: MM SCREENING DIGITAL BREAST TOMOSYNTHESIS, BILATERAL CLINICAL INFORMATION: Screening. Asymptomatic. COMPARISON: Comparison made to multiple prior, most recent April 27, 2024, and most remote May 14, 2014. TECHNIQUE: Digital breast tomosynthesis is performed in mediolateral oblique and craniocaudal views along with computer-aided detection (CAD). Synthesized 2D images are generated from the tomosynthesis. FINDINGS: BREAST COMPOSITION: There are scattered areas of fibroglandular density. BILATERAL BREASTS: No significant masses, suspicious calcifications or other abnormalities are seen in either breast. MM/MM tomosynthesis screening BI IMPRESSION: BILATERAL BREASTS: Negative, no mammographic evidence of malignancy. Normal interval follow-up is recommended in 12 months. ASSESSMENT: BI-RADS: Category 1: Negative RECOMMENDATION: Routine annual mammography screening. FOLLOW-UP: 1 year F/U This examination should not preclude the clinical evaluation of a suspicious palpable abnormality. This patient's information was entered into a reminder system with a target due date for their next mammogram. Electronically signed by: Monica Vasquez MD 05/13/2025 01:05 PM JAIME
--- OUTSIDE RECORDS SUMMARY | 2025-05-11 10:37 | XMS_ITS | Patient Health Record ---
Author Organization [facility] Address [address] [place] [address] Care Team Providers Care Brewery Representative Name Role Phone Anthony Braga MD Primary Care Provider Eric Boyd Unavailable [phone] Allergies Allergen (clinical drug ingredient) Drug/Non Drug [...] Disorder of joint of ankle and/or foot (677753750) Arthritis - Degenerative (719.97) Active confirmed Problem Neuralgia - Neuritis (729.2) Active confirmed Problem Hallux rigidus (3690452) Hallux Rigidus (735.2) Active confirmed Problem Acquired deformity of joint of big toe (disorder) (096617137) Hallux Limitus (735.8) Active confirmed Problem Pain in limb (59210845) Pain in Limb (729.5) Active confirmed Problem Exostosis (81486401) Exostosis (726.91) Active confirmed Plan Of Treatment Pending Test Test Name Order Date X ray : Foot, left 2V 03/22/2012 X ray : Foot, right 2V 03/22/2012 Insurance Providers Payer Name Payer Address Payer Phone Subscriber Number Group Number Insured Name Patient Relationship to Insured Coverage Start Date Coverage End Date Medicare National [employer] [address] [place] [address] [id number] Verito Pendleton Self - patient is the insured [employer] [address] [place] [address] [phone] [id number] Dann Finch Spouse - patient is the spouse of the insured Medical (General) History Medical History History ICD Code back, hip, knee pain cataracts chicken pox glaucoma measles osteoarthritis skin cancer sinuse conditions transfusions Surgical History Surgery Date(Month/Year) nephrectomy 1960 carpal tunnel surgery 2006 tonsillectomy and adenoidectomy 1948 wisdom teeth extraction 1964 deviated septum repair 1964 hemorrhoidectomy 1971
--- OUTSIDE RECORDS SUMMARY | 2025-05-11 10:37 | XMS_ITS | Patient Health Record ---
Author Organization [facility] Address [address] [place] [address] Care Team Providers Care Catalogue Illustrator Name Role Phone Rebecca Rust MD Primary Care Provider Bernard Sorensen [phone] Allergies Allergen (clinical drug ingredient) Drug/Non Drug Allergy documented on EMR Reaction Allergy Type Onset Date Status Seasonale Unknown Drug Allergy Active Reason For Referral No Information Medications Medication SIG (Take, Route, Fr equency, Duration) Notes Start Date End Date Status Lumigan 0.01 % Ophthalmic; Duration: 90 Active Gabapentin 100 MG Oral; Duration: 90 Active Timolol Maleate 0.5 % Ophthalmic; Duration: 90 Active Immunizations Vaccine Route Administration Date [...] Risk Notes Problem Change in bowel habit (30024874) Change in bowel habit (R19.4) Active confirmed Problem Atrophic gastritis (86850338) Unspecified chronic gastritis without bleeding (K29.50) Active confirmed Problem Diverticular disease of colon (528104335) Diverticulosis of large intestine without perforation or abscess without bleeding (K57.30) Active confirmed Problem Abnormal weight loss (584911871) Abnormal weight loss (R63.4) Active confirmed Plan Of Treatment Future Test Test Name Order Date UPPER GI ENDOSCOPY 11/30/2023 COLONOSCOPY 11/30/2023 Insurance Providers Payer Name Payer Address Payer Phone Subscriber Number Group Number Insured Name Patient Relationship to Insured Coverage Start Date Coverage End Date MED[place]ARE OF [place] [address] [place] [address] [id number] SOLOMON SEHILA Self - patient is the insured [employer] [address] [place] [address] [id number] SOLOMON SHEILA Self - patient is the insured Medical (General) History Medical History History ICD Code High blood pressure white coat syndrome Neuropathy in the feet Denies MA,DM,CVA,Lung disease,renal dise ase Negative screening colonoscopy in 2010 Surgical History Surgery Date(Month/Year) Tonsillectomy 1947 Nephrectomy on the right for renal arter y stenosis 1960 Hemorrhoidectomy 1975
== END 2025-05-11 09:33 | disposition home or self-care (01) ==
LOC: HO.MAMMO 09:32
PROVIDERS: PCP Internal Medicine; Referring Provider Nurse Practitioner Adult Health; Visit Provider Internal Medicine
DX: Z12.31 Encounter for screening mammogram for malignant neoplasm of breast (principal)
CPT/HCPCS: 77063; 77067

== ENCOUNTER → 2025-05-11 09:45 | Outpatient (BNV) | payer MEDICARE, OTHER, SELFPAY | PROVIDERS: PCP Internal Medicine; Referring Provider Nurse Practitioner Adult Health; Visit Provider Radiology Body Imaging | DX: Z12.31 Encounter for screening mammogram for malignant neoplasm of breast (principal) | CPT/HCPCS: 77063; 77067 ==